=== PATIENT | female | born 1960 | race Caucasian/White ===

== ENCOUNTER → 2023-08-03 15:32 | Outpatient (REF) | payer OTHER, SELFPAY | LOC: HWRAD 15:32 | PROVIDERS: ATTENDING PHYSICIAN Nurse Practitioner Adult Health; FAMILY PHYSICIAN Internal Medicine | DX: F17.210 Nicotine dependence, cigarettes, uncomplicated (principal) | CPT/HCPCS: 71271 ==

== ENCOUNTER → 2023-09-19 15:31 | Outpatient (REF) | payer OTHER, SELFPAY | LOC: HWRAD 15:31 | PROVIDERS: ATTENDING PHYSICIAN Internal Medicine Critical Care Medicine; FAMILY PHYSICIAN Internal Medicine | DX: R91.1 Solitary pulmonary nodule (principal) | CPT/HCPCS: 71250 ==

== ENCOUNTER 2023-10-23 06:40 | Day surgery (SDC) | payer OTHER, SELFPAY ==
[2023-10-10 09:48] LABS: Hematocrit 44.5 % (37.0-47.0); Hemoglobin 14.9 g/dL (12.0-16.0); Mean Corp Hgb Conc. 33.5 g/dL (33.0-37.0); Mean Corpuscular Hgb 30.4 pg (27.0-31.0); Mean Corpuscular Volume 90.8 fL (81.0-99.0); Mean Platelet Volume 9.8 fL (7.4-10.4); Platelet Count 205 10^3/uL (130-400); White Blood Cell Count 6.2 10^3/uL (4.8-10.8)
[2023-10-10 10:00] LABS: INR 1.09; PT 13.9 Sec (11.4-14.6)
[2023-10-10 10:01] LABS: APTT 31.7 Sec (23.4-35.0)
[2023-10-10 10:27] VITALS: BMI 30.4
[2023-10-10 10:34] LABS: Blood Urea Nitrogen 15 mg/dl (7-17); Calcium 9.7 mg/dl (8.4-10.2); Carbon Dioxide 25 mmol/L (22-30); Chloride 109 mmol/L (98-107); Estimated Creatinine Clearance 79 ml/min; Glucose 68 mg/dl (70-99); Potassium 4.7 mmol/L (3.5-5.1); Sodium 143 mmol/L (135-145); eGFR > 60.00
[2023-10-23] VITALS (12 sets, daily range): BP systolic 102–144; BP diastolic 62–82; BMI 30.7
--- NOTE | 2023-10-23 14:22 | PTCARENOTE ---
Addendum..Dr Tabor aware of CXR results, patient stable for transfer to [facility] .
== END 2023-10-23 14:50 | disposition home or self-care (01) ==
LOC: SDS 06:40
PROVIDERS: ATTENDING PHYSICIAN Internal Medicine Critical Care Medicine; FAMILY PHYSICIAN Internal Medicine
DX: R91.8 Other nonspecific abnormal finding of lung field (principal)
CPT/HCPCS: 31629; 31628; 31645; 31624; 31623; 31654; 88172; 88173; 88305; 36415; 71045; 76000; 80048; 85027; 85610; 85730; 87015; 87070; 87102; 87116; 87205; 88112; 88333; 88341; 88342; 93005; 94640; C1887

== ENCOUNTER 2023-12-11 05:14 | Inpatient (IN) | payer OTHER, SELFPAY ==
[2023-12-01 09:30] LABS: % Basophils 1.5 % (0-2); % Eosinophils 2.1 % (0-6); % Immature Granulocytes 0.2 % (0-0.5); % Lymphocytes 26.2 % (20.5-51.1); Absolute Basophils 0.1 10^3/uL (0-0.2); Absolute Eosinophils 0.1 10^3/uL (0-0.7); Absolute Lymphocytes 1.7 10^3/uL (1.2-3.4); Absolute Monocytes 0.7 10^3/uL (0.1-0.6); Absolute Neutrophils 3.9 10^3/uL (1.4-6.5); Hematocrit 46.4 % (37.0-47.0); Hemoglobin 15.3 g/dL (12.0-16.0); Mean Corpuscular Hgb 30.1 pg (27.0-31.0); Mean Corpuscular Volume 91.2 fL (81.0-99.0); Mean Platelet Volume 9.2 fL (7.4-10.4); Nucleated Red Blood Cells % 0 %; Platelet Count 248 10^3/uL (130-400); Red Blood Cell Count 5.09 10^6/uL (4.20-5.40); Red Cell Dist. Width 12.9 % (11.5-14.5); White Blood Cell Count 6.5 10^3/uL (4.8-10.8)
[2023-12-01 09:33] LABS: Urine Albumin Negative (Neg - Trace); Urine Bilirubin Negative (Negative); Urine Character Clear (Clear); Urine Color Yellow; Urine Glucose Negative (Negative); Urine Ketone Negative (Negative); Urine Leukocyte Negative (Negative); Urine Nitrite Negative (Negative); Urine Occult Blood Trace (Negative); Urine Specific Gravity 1.015 (<1.030); Urine Urobilinogen Negative (Neg - 1+)
[2023-12-01 09:41] LABS: Urine Squamous Cell 16-20 /LPF (Few)
[2023-12-01 09:42] LABS: Urine Bacteria Few (Negative); Urine Red Blood Cell 0-2 /HPF (0-2); Urine White Cell 0-2 /HPF (0-5)
[2023-12-01 09:58] LABS: INR 1.08; PT 13.8 Sec (11.4-14.6)
[2023-12-01 10:27] LABS: ALT (SGPT) 11 U/L (0-35); AST (SGOT) 21 U/L (14-36); Albumin 4.7 g/dl (3.5-5.0); Alkaline Phosphatase 127 U/L (38-126); Blood Urea Nitrogen 17 mg/dl (7-17); Calcium 9.7 mg/dl (8.4-10.2); Carbon Dioxide 24 mmol/L (22-30); Chloride 106 mmol/L (98-107); Direct Bilirubin 0.3 mg/dl (0.0-0.4); Glucose 91 mg/dl (70-99); Potassium 4.4 mmol/L (3.5-5.1); Sodium 143 mmol/L (135-145); Total Bilirubin 0.9 mg/dl (0.2-1.3); Total Protein 7.1 g/dl (6.3-8.2); eGFR > 60.00
[2023-12-01 11:00] LABS: Glycohemoglobin (HgbA1c) 4.9 % (4.0-5.6)
--- NOTE | 2023-12-01 11:21 | CM ---
spoke to pt and husb in PAT's, we discussed preop teaching including driving and lifting restrictions, she is prev indep, lives with her husb in a 2 story home with a first floor set up and no steps to enter.she denies any dme's. she has the Lung
sx educ book, soap and instructions. she is agreeable to a f/u visit from the ct transitional care nurse after dc. plan isf or R-Lung surgery 12/10, cm role explained and all questions answered.
[2023-12-11] VITALS (16 sets, daily range): BP systolic 97–163; BP diastolic 58–149
--- NOTE | 2023-12-11 06:19 | W.CVOR.SURPR ---
CVOR Surgeon Immed Pre Op
-
I have examined this patient prior to performance of the scheduled procedure.
The patient's condition is unchanged from the time of the dictated/written History and
Physical and the patient is able to undergo the scheduled procedure.
Plan for RUL extended wedge/sublobar resection, given her poor baseline PFTs. Will obtain intraop frozen section and likely lymph node dissection.
[2023-12-11] MEDS: DILAUDID 0.5 MG IV ×2 (10:43→14:22)
--- NOTE | 2023-12-11 10:43 | W.PN.CT.SURG ---
CT Surgery Operative Note
-
THORACIC SURGERY OPERATIVE REPORT
Preoperative Diagnosis: Right upper lobe nodule with atypical cells
Postoperative Diagnosis: Same
Procedure(s) Performed:
1. Robotic assisted thoracic surgery [RATS] right upper lobe diagnostic and therapeutic sublobar resection
2. Lymph node dissection
3. Intercostal nerve block, interspaces 4, 5, 6, 7, 8 with bupivacaine mixture
Date of Surgery: 12/11/23
Comorbidities:
1. COPD/emphysema
2. Right upper lobe biopsy with atypical cells
3. History of tobacco abuse, former smoker with depressed pulmonary function status, DLCO 51%
4. History of GI bleed with gastric ulcer
5. Basal cell carcinoma of the skin
6. History of Crohn's colitis
7. GERD
Attending Surgeon: Lamont Kerr MD, MS
Assistants: Carlotta Aleln PA-C (present and necessary to waiter/waitress first class, exchanging robotic instruments, retraction, suction, exposure, suture management, and wound closure under my direction)
Anesthesiology: Gaston Acosta MD and Cj Villalobos CRNA
Scrub and Circulating RNs: Betzy Holly, KEIRA, Anh Pena RN
Anesthesia: Dual Lumen GETA
EBL: 100 cc
Products: None
Indication(s) for Procedures: This is a 63-year-old female with insignificant [id number] smoking history. She also has depressed pulmonary function status with DLCO 50% and reduced FEV1. She has a 15 x 9 mm nodule in her most recent CT scan that
demonstrated increase in size in comparison to previous scans. Is also PET avid with a SUV uptake of 7.2 max. She underwent a robotic endoluminal bronchoscopy that initially came back with atypical cells. Final pathology came back as no evidence
of malignancy. Due to the concerning size of the mass and its activity, she underwent multidisciplinary team discussion with the overall group consensus to pursue surgical resection. As the lesion was located in the apical posterior segment the
right upper lobe where she had the majority of her emphysematous lung disease, we all felt that she could tolerate a sublobar resection. Her [facility] cancer risk was approximately 90%.
Findings: There was evidence of bullous and emphysematous lung disease mostly confined to the apical segment and posterior segment of the right upper lobe. Her fissures were relatively well-defined. She had a paucity of lymph nodes. Multiple
fires of green/black/and purple loads were required in order to resect the apical segment. 90% of the emphysematous lung disease was resected along with the specimen. There were no obvious intrathoracic metachronous lesions that were concerning.
Due to the likelihood of this being malignancy, any obvious lymph nodes were harvested. Intraoperative frozen section returned with some atypical cells but no kraen or obvious carcinoma. Per my discussion with pathology, this was likely reactive.
Intercostal nerve block was performed with the above listed spaces for pain control. Due to the paucity of lymph nodes and the lack of cancer diagnosis, I did not perform deep hilar matilda dissection along the fissure. At the conclusion of the case
she had good inflation of her remaining lobes as well as the right upper lobe remnant. She had no significant loss of tidal volume but did have a +1 intermittent airleak.
Specimen(s):
Station 9, x 1 nodes
Station 8, x 1 nodes
Station 4, x 1 nodes
Station 7, x 2 nodes
Sublobar resection of the apical posterior segment of the right upper lobe
Description of Procedure: The patient was taken to the operating room. Induction via general anesthesia with endotracheal intubation was performed and peripheral venous access and arterial monitoring were inserted. Their identity and procedure to be
performed were verified and they were positioned with the right side up on the operating table. The patient was then prepped and draped in a sterile fashion. A preoperative time-out was performed with all members of the team present. A Veress
needle was used to insufflate the chest after isolating the lung. An 8 mm port was placed in the midaxillary line at approximately the eighth intercostal space and confirmed to be intrathoracic without significant pulmonary injury. The chest was
surveyed for any evidence of metastatic disease. Patient tolerate insufflation without complication. 2 additional 12 mm trocars were placed on either side under camera guidance and a third 8 mm trocar was placed along the back. A 12 mm operations assistant
port was placed in the 11th intercostal space above the insertion of the diaphragm. An intercostal nerve block was performed at intercostal spaces 4 through 8.
The thoracic cavity was inspected for evidence of metastatic disease. None was observed. The emphysematous lung tissue was clear identified. The nodule is not easily palpated. A large sublobar resection was performed using multiple fires of green
load staplers, black load staplers, and ultimately required an Endo JOSH purple load stapler x 2. The specimen was then placed into a small anchor bag and extracted from the chest cavity. While waiting for pathology, any obvious lymph nodes towards
the inferior pulmonary ligament, and posteriorly and upwards towards the trachea were harvested. I did develop some of the fissure between the right upper and right middle lobe/lower lobe however deep dissection of lymph nodes was not performed as
the intraoperative frozen section returned with only atypical cells likely reactive. CoSeal was used to reinforce the staple line and a raw surface area. A chest tube was inserted using one of the previous port sites and displaced towards the
apex. After confirming hemostasis, the lung was fully inflated and all ports were removed. Incisions were closed in 3 layers including the fascia, dermal, and epidermis. Additional local anesthesia was injected into all incision sites. The skin
wound was cleansed and sealed with Dermabond glue.
All instrument, sponge, and needle counts were confirmed to be correct x 2 at the end of the operation. The patient was transferred to the cardiac intensive care unit extubated in critical but stable condition.
I, Dr. Lamont Kerr, was present, scrubbed for, and performed all critical elements of this procedure.
Lamont Kerr MD, MS
Cardiothoracic Surgeon
[facility]
This operative dictation was created using the [employer] dictation system. Please excuse any grammatical, typographical, or 'sound alike' errors
[2023-12-11] MEDS: DILAUDID 0.25 MG IV (10:59)
--- NOTE | 2023-12-11 11:30 | PTCARENOTE ---
Received pt from RESERVATIONS CLERK. Pt assessed while she was lying in bed. Pt alert and oriented x4. Pt denies pain and shortness of breath. Reports nausea-see MAR. HUMPHRIES with equal strength throughout. SB with 1st degree AVB on tele with rates in the 50s. BP
stable 107/65 via cuff, correlating with left radial johnathan. Bilateral radial and DP pulses palpable. +1 edema to b/l lower extremities. POX 94% on 1L NC. Lungs diminished throughout. No cough noted. Right pleural chest tube to -20cm suction draining
serosanguineous fluid. +1 intermittent air leak. No tidaling, crepitus noted. Abdomen soft, round, nontender. Hypoactive BS. Pt due to void. Right sided 4 small incision sites with skin glue approximated and FOOT WORKER. Left radial johnathan flushed, leveled,
and zeroed. Left wrist 18g PIV intact. See MAR for medication administration. See worklist for complete nursing assessment. Plan of care reviewed and patient in agreement.
[2023-12-11] MEDS: ZOFRAN 4 MG IV ×2 (11:45→16:09)
--- NOTE | 2023-12-11 11:50 | CM ---
Chart reviewed. Patient is independent of ADLS, lives with her in a 2 STH, 1st floor set up, 0 DG, 0 DME. Plan is for the patient to return home with CT Transitional RN. CM to follow
[2023-12-11] MEDS: TORADOL 15 MG IV (12:55)
--- NOTE | 2023-12-11 14:20 | PTCARENOTE ---
Pt c/o 10/03 right sided chest/back incisional pain, see MAR. Pt voided 225mL laura urine in the bed pearson. Left radial johnathan d/c per orders. Hemostasis achieved. Pt tolerated. Family at bedside.
[2023-12-11] MEDS: TYLENOL 1000 MG PO ×2 (14:22→21:48)
[2023-12-11] MEDS: ANCEF 5 IV (16:15)
[2023-12-11] MEDS: NEURONTIN 100 MG PO ×2 (16:15→21:48)
--- NOTE | 2023-12-11 16:30 | PTCARENOTE ---
Pt reassessed. Pt states right lateral chest/back pain 08/03. C/o nausea with 125mL green emesis. Assisted to side of bed, and then to chair with 1 assist. SR with 1st degree AVB with rates in the 70s. BP stable 109/64. CT output WNL. POX 92% on RA.
Surgical sites stable. PIV intact. No other acute changes.
[2023-12-11] MEDS: REGLAN 10 MG IV (16:36)
[2023-12-11] MEDS: SENOKOT 8.6 MG PO (20:12)
[2023-12-11] MEDS: LOPRESSOR 12.5 MG PO (20:12)
--- NOTE | 2023-12-11 21:00 | PTCARENOTE ---
Assumed care of pt from dayshift RN. Walking rounds completed. Pt AAOx3. HUMPHRIES. Pt SR on the tele monitor. HR 60s. BP stable. Palpable pulses throughout. +1 LE edema present. Pt on RA. POX 94%. Breath sounds decreased throughout. Deep breathing and IS
encouraged. No cough. Right pleural CT to -20 suction. +1 air-leak present. No crepitus felt on right lateral chest/side. No tidaling present. Output WNL. Abdomen soft/nontender. Hypoactive BS. Pt experiencing intermittent nausea. Voiding in the
bathroom yellow urine. Pt 1x assist out of the chair/bed. Incision sitesx4 on right lateral chest/back approximated and FAMILY PHYSICIAN. Left wrist 18 gauge CDI and flushes. Pt resting in bed at this time. See worklist for full nursing assessment and
interventions. Call fischer within reach.
[2023-12-12] VITALS (8 sets, daily range): BP systolic 106–132; BP diastolic 57–70
--- NOTE | 2023-12-12 00:52 | PTCARENOTE ---
Previous assessment unchanged. Pt SR on the tele monitor. HR 50s. BP stable. Pt on RA. POX 92%. Right pleural CT assessment unchanged. +1 airleak remains. No tidaling/crepitus at this time. Output WNL. All surgical sites stable. Denies nausea. No
c/o pain at this time. Call fischer within reach.
[2023-12-12] MEDS: ROXICODONE 2.5 MG PO ×2 (01:08→13:52)
--- NOTE | 2023-12-12 03:33 | W.PN.CT ---
Today's Communication / Plan
-
Plan:
-No major issues overnight. Hemodynamically and neurologically intact
-Successfully extubated intraop
-Chest tube currently on -20 cmh2o wall suction with 1+ air leak. Drainage: R pleural 50/125
-Cannot appreciate a ptx, just slight SQ emphysema @ chest tube insertion site on cxr this AM on my review. F/U official cxr report
-Will discuss chest tube to suction vs water seal
-Cont. current meds (Lopressor, Symbicort, Spiriva, Protonix)
-Encourage use of IS
-OOB into chair/Ambulate
-F/U pathology
Assessment / Plan
-
Assessment:
-S/P Robotic assisted thoracic surgery [RATS] right upper lobe diagnostic and therapeutic sublobar resection/Lymph node dissection/Intercostal nerve block, interspaces 4, 5, 6, 7, 8 with bupivacaine mixture, by Dr. Kerr, 12/11/23, pod#1
-RUL mass (15 mm) with atypical cells
-NAE mass (11 mm)
-Tobacco abuse (75 pk/yr, quit ~ 2wks ago)
-COPD/Emphysema
-GERD
-Hx GI bleed/gastric ulcer S/p Colonoscopy 2017
-Crohn's colitis
-Basal cell ca face (under left eye) S/p Moh's 12/2018
-Basal cell ca nose S/P moh's 05/20, 11/16, 07/15, 01/12
Discussed patient care with: Cardiology, Nursing, Respiratory Therapy, Pharmacy and Care Team
Subjective
Procedure
S/P Robotic assisted thoracic surgery [RATS] right upper lobe diagnostic and therapeutic sublobar resection/Lymph node dissection/Intercostal nerve block, interspaces 4, 5, 6, 7, 8 with bupivacaine mixture, by Dr. Kerr, 12/11/23
-
Date of Service: December 12, 2023
Pt c/o mild incisional pain, otherwise feels well
Objective Data
-
PT 13.8 Sec (11.4-14.6) 12/01/23 09:03
INR 1.08 12/01/23 09:03
APTT Cancelled 12/01/23 08:40
Vital Signs
Vital Signs
Temp Pulse Resp BP Pulse Ox
98.1 F 60 18 112/60 92
12/11/23 23:58 12/11/23 23:58 12/11/23 23:58 12/11/23 23:58 12/11/23 23:58
CT Intake/Output/Weight
12/11/23 12/11/23 12/12/23
06:59 18:59 06:59
Intake Total 820 / 820
Output Total 425 / 445 20 / 445
Balance -10 395 / 375 -20 / 375
SaO2: 92 (RA)
Physical Exam
-
General: Awake, Oriented and AOx3
Cardiovascular: Regular rate & rhythm, No Murmurs, No Rub and No Gallop
Respiratory: Decreased Breath Sounds (@ right, otherwise clear)
Sternum: Stable
Incision: Clean, Dry, Intact and Dressing Intact
Extremities: No Edema
Data Reviewed
-
Lab Results: Results Reviewed
Medications: Active Meds Reviewed
Chest X-Ray: Report Reviewed and Image Reviewed
CT Scan: Report Reviewed and Image Reviewed
ECG: Report Reviewed and Image Reviewed
[2023-12-12] MEDS: SYMBICORT 160/4.5 MCG INHALER INH (03:49)
[2023-12-12] MEDS: FLEXERIL 5 MG PO (04:26)
[2023-12-12 04:31] LABS: Hematocrit 39.3 % (37.0-47.0); Hemoglobin 13.4 g/dL (12.0-16.0); Mean Corp Hgb Conc. 34.1 g/dL (33.0-37.0); Mean Corpuscular Hgb 30.1 pg (27.0-31.0); Mean Corpuscular Volume 88.3 fL (81.0-99.0); Mean Platelet Volume 9.1 fL (7.4-10.4); Platelet Count 206 10^3/uL (130-400); Red Blood Cell Count 4.45 10^6/uL (4.20-5.40); Red Cell Dist. Width 12.8 % (11.5-14.5); White Blood Cell Count 16.7 10^3/uL (4.8-10.8)
--- NOTE | 2023-12-12 04:41 | PTCARENOTE ---
No acute changes in assessment. Remains SR on the tele monitor. HR 60s. BP stable. Pt on RA. POX 91%. Right pleural CT assessment unchanged. +1 air-leak remains. All surgical sites stable. Pt c/o right side feeling sore - see MAY. Labs drawn and
sent. Pt repositioned in bed. Call fischer within reach.
[2023-12-12 04:46] LABS: Blood Urea Nitrogen 28 mg/dl (7-17); Calcium 9.3 mg/dl (8.4-10.2); Carbon Dioxide 21 mmol/L (22-30); Chloride 107 mmol/L (98-107); Glucose 132 mg/dl (70-99); Potassium 4.5 mmol/L (3.5-5.1); Sodium 140 mmol/L (135-145); eGFR > 60.00
[2023-12-12] MEDS: TYLENOL 1000 MG PO ×3 (06:02→21:02)
[2023-12-12] MEDS: SYMBICORT 160/4.5 MCG INHALER 2 PUFF INH ×2 (07:39→19:35)
[2023-12-12] MEDS: SPIRIVA RESPIMAT 2.5 MCG 2 PUFF INH (07:39)
[2023-12-12] MEDS: TORADOL 15 MG IV ×2 (09:27→21:40)
[2023-12-12] MEDS: KCL 20 MEQ PO (09:28)
[2023-12-12] MEDS: LOPRESSOR 12.5 MG PO ×2 (09:28→19:46)
[2023-12-12] MEDS: PROTONIX 40 MG PO (09:28)
[2023-12-12] MEDS: SENOKOT 8.6 MG PO ×2 (09:29→19:46)
[2023-12-12] MEDS: ANCEF 5 IV ×2 (09:29)
[2023-12-12] MEDS: MIRALAX 17 GRAMS PO (09:29)
[2023-12-12] MEDS: NEURONTIN 100 MG PO ×3 (09:29→21:02)
[2023-12-12] MEDS: LIDOCAINE 4% PATCH 1 PATCH TOPICAL (09:29)
[2023-12-12] MEDS: LASIX 20 MG IV (09:29)
--- NOTE | 2023-12-12 09:48 | PTCARENOTE ---
assumed care of pt from previous shift RN, sinus rhythm on tele, VSS. Right lateral surgical sites intact, RP CT to H20 seal. PIV flushes easily. Plan of care reviewed w the pt and questions encouraged.
--- NOTE | 2023-12-12 12:48 | PTCARENOTE ---
cxr completed, CT placed back to suction by CT FLORENCIA.
--- NOTE | 2023-12-12 16:38 | PTCARENOTE ---
sinus rhythm maintained on tele, VSS, pain is well controlled. CT remains to suction w minimal output.
[2023-12-13] VITALS (8 sets, daily range): BP systolic 104–158; BP diastolic 50–94
--- NOTE | 2023-12-13 03:08 | DOWNTIME ---
There was a [employer] Client Health Policy Manager Downtime on 12/13/2023 from 0100 to 12/13/2023 at 0300. Downtime documentation of patient's care, including medication administrations, has been reconciled in the electronic record per guidelines. Refer to the
patient's paper chart under the miscellaneous tab to see printed paper medication records and downtime forms.
[2023-12-13] MEDS: ROXICODONE 2.5 MG PO ×2 (04:11→17:45)
[2023-12-13] MEDS: TYLENOL 1000 MG PO ×3 (05:43→22:07)
--- NOTE | 2023-12-13 05:52 | PTCARENOTE ---
Pt. slept well overnight, right chest tube site discomfort well relieved with Toradol/Tylenol. CT to -20 cm water suction draining SS fluid. Total output for this shift 40 ml.
--- NOTE | 2023-12-13 07:34 | W.PN.CT ---
Today's Communication / Plan
-
Plan:
-No major issues overnight. Hemodynamically and neurologically intact
-Chest tube currently on -20 cmh2o wall suction with 1+ air leak. Drainage: R pleural 80/80
-Cannot appreciate a ptx on cxr this AM on my review. F/U official cxr report
-Will likely transition chest tube to water seal today with f/u cxr
-Cont. current meds (Lopressor, Symbicort, Spiriva, Protonix)
-Encourage use of IS
-OOB into chair/Ambulate
-F/U pathology
Assessment / Plan
-
Assessment:
-S/P Robotic assisted thoracic surgery [RATS] right upper lobe diagnostic and therapeutic sublobar resection/Lymph node dissection/Intercostal nerve block, interspaces 4, 5, 6, 7, 8 with bupivacaine mixture, by Dr. Kerr, 12/11/23, pod#1
-RUL mass (15 mm) with atypical cells
-NAE mass (11 mm)
-Tobacco abuse (75 pk/yr, quit ~ 2wks ago)
-COPD/Emphysema
-GERD
-Hx GI bleed/gastric ulcer S/p Colonoscopy 2017
-Crohn's colitis
-Basal cell ca face (under left eye) S/p Moh's 12/2018
-Basal cell ca nose S/P moh's 05/20, 11/16, 07/15, 01/12
Discussed patient care with: Cardiology, Nursing, Respiratory Therapy, Pharmacy and Care Team
Subjective
Procedure
S/P Robotic assisted thoracic surgery [RATS] right upper lobe diagnostic and therapeutic sublobar resection/Lymph node dissection/Intercostal nerve block, interspaces 4, 5, 6, 7, 8 with bupivacaine mixture, by Dr. Kerr, 12/11/23
-
Date of Service: December 13, 2023
Pt c/o chest tube insertion site pain last night, better this morning
Objective Data
-
Lab Results
12/12/23 04:20
12/12/23 04:20
PT 13.8 Sec (11.4-14.6) 12/01/23 09:03
INR 1.08 12/01/23 09:03
APTT Cancelled 12/01/23 08:40
Vital Signs
Vital Signs
Temp Pulse Resp BP Pulse Ox
97.9 F 77 20 117/65 90
12/13/23 07:01 12/13/23 04:03 12/13/23 07:01 12/13/23 04:03 12/13/23 07:01
CT Intake/Output/Weight
12/12/23 12/13/23 12/13/23
18:59 06:59 18:59
Intake Total 100 / 340 240 / 340
Output Total 40 / 80 40 / 80
Balance 60 / 260 200 / 260
SaO2: 90 (RA)
Physical Exam
-
General: Awake, Oriented and AOx3
Cardiovascular: Regular rate & rhythm
Respiratory: Decreased Breath Sounds
Sternum: Stable
Incision: Clean, Dry, Intact and Dressing Intact
Extremities: No Edema
Data Reviewed
-
Lab Results: Results Reviewed
Medications: Active Meds Reviewed
Chest X-Ray: Report Reviewed and Image Reviewed
ECG: Report Reviewed and Image Reviewed
--- NOTE | 2023-12-13 08:00 | PTCARENOTE ---
Assumed care of pt from prev nsg shift; pt AAOx3 w/no c/o SOB, pt c/o 'mild' 2-3/10 R lateral chest pain at her chest tube insertion site. Pt declined pain meds at this time. Pt w/chest tube to drainage as ordered, w/+1 known air leak, no signs or
symptoms of crepitus. Chest dressing w/some serosanguineous drainage unchanged from prev nurses assessment. Pt's VS stable w/HR in the 60's & BP this AM 121/62. Pt assisted OOB to BR then to CH. Pt's gait slow, but steady. Pt w/call fischer within
reach & plan of care ongoing.
[2023-12-13] MEDS: SPIRIVA RESPIMAT 2.5 MCG 2 PUFF INH (08:15)
[2023-12-13] MEDS: SYMBICORT 160/4.5 MCG INHALER 2 PUFF INH ×2 (08:15→19:33)
[2023-12-13] MEDS: LIDOCAINE 4% PATCH 1 PATCH TOPICAL (08:44)
[2023-12-13] MEDS: LOPRESSOR 12.5 MG PO ×2 (08:45→19:47)
[2023-12-13] MEDS: MIRALAX 17 GRAMS PO (08:45)
[2023-12-13] MEDS: TORADOL 15 MG IV (08:46)
[2023-12-13] MEDS: NEURONTIN 100 MG PO ×3 (08:46→22:07)
[2023-12-13] MEDS: PROTONIX 40 MG PO (08:46)
[2023-12-13] MEDS: SENOKOT 8.6 MG PO ×2 (08:46→19:47)
[2023-12-13] MEDS: FLUSH (NSS) 2 FLUSH IV ×2 (08:47→16:05)
--- NOTE | 2023-12-13 09:27 | CM ---
Reviewed chart. Mrs. Portillo was transferred to IVU. Met with Mrs. Portillo to review discharge plans. She states she is feeling better. She states prior to admission she resides with her spouse in a two story home with four steps to enter.
She states she has a first floor set-up. Her primary suite is on the first floor. She states prior to admission she was independent with ambulation and adls. She states she does not have any DME in the home. She states her spouse is retired and
will be available to assist in her care if needed. We reviewed a home visit by the Cardiothoracic Transitional Care Nurse. She is agreeable to a home visit. Medical work-up in progress. The discharge plan is to return home with her spouse and a
home visit by the Cardiothoracic Transitional Care Nurse when medically stable.
[2023-12-13] MEDS: DILAUDID 0.25 MG IV ×2 (16:05→20:43)
--- NOTE | 2023-12-13 16:28 | PTCARENOTE ---
Pt's spouse out to the nurses station to report pt was having 'severe chest pain'; CT surgery PA in to see pt immediately. Pt having 10/10 R upper chest & R upper back pain. Pt's chest tube checked for kinks in the tubing, dressing checked, & pt
assisted back to bed. New crepitus noted above chest tube insertion site. Stat EKG done-pt NSR w/no changes. IV Dilaudid administered as ordered. Stat CXR done. Pt's pain level improved at a 3/10 at this time. Pt w/call fischer within reach.
[2023-12-13] MEDS: FLEXERIL 5 MG PO (23:33)
[2023-12-13 23:51] LABS: Hematocrit 40.6 % (37.0-47.0); Hemoglobin 13.7 g/dL (12.0-16.0); Platelet Count 212 10^3/uL (130-400)
[2023-12-14] VITALS (9 sets, daily range): BP systolic 96–126; BP diastolic 52–67
--- NOTE | 2023-12-14 01:36 | PTCARENOTE ---
Patient requires standby assist when ambulating to bathroom. Denies any dizziness. Pt does c/o exertional pain when returning from bathroom. Described pain as 'sharp' and 'burning'. PRN Dilaudid administered--see MAY for details. Pt w/ good relief
post pain assessment. Pulse ox sating 89-90% RA. Applied 2L for comfort, pt currently sating 96%. Kevin Parra CVPA made aware. Tele remains NSR-Sinus Jose, HR in the 50-70's at rest. Chest tube on -20cm suction per order, and draining
serosanguineous fluid. Grade level 1 air leak remains, PA aware. Pt oriented x4, and can make needs known. Call fischer in reach.
[2023-12-14] MEDS: ROXICODONE 2.5 MG PO ×3 (02:47→12:23)
--- NOTE | 2023-12-14 05:21 | PTCARENOTE ---
Right lateral chest tube w/ 60cc output overnight. Suction remains at -20cm to wall suction per order. POC ongoing. fischer within reach.
[2023-12-14] MEDS: MILK OF MAGNESIA 30 ML PO (05:30)
[2023-12-14] MEDS: TYLENOL 1000 MG PO ×3 (05:30→22:31)
[2023-12-14 05:42] LABS: Hematocrit 40.3 % (37.0-47.0); Hemoglobin 13.5 g/dL (12.0-16.0); Mean Corp Hgb Conc. 33.5 g/dL (33.0-37.0); Mean Corpuscular Volume 92.6 fL (81.0-99.0); Mean Platelet Volume 9.1 fL (7.4-10.4); Platelet Count 170 10^3/uL (130-400); Red Blood Cell Count 4.35 10^6/uL (4.20-5.40); White Blood Cell Count 8.8 10^3/uL (4.8-10.8)
[2023-12-14 06:09] LABS: Blood Urea Nitrogen 29 mg/dl (7-17); Carbon Dioxide 23 mmol/L (22-30); Chloride 107 mmol/L (98-107); Glucose 88 mg/dl (70-99); Potassium 4.6 mmol/L (3.5-5.1); Sodium 140 mmol/L (135-145); eGFR > 60.00
--- NOTE | 2023-12-14 07:49 | W.PN.CT ---
Today's Communication / Plan
-
-pod #3
-hemodynamically stable overnight, got Dilaudid for pain
-R pleural CT with +1 intermittent air leak, on -20 sxn. Tiny R apical ptx- follow
-encourage IS, OOB
Assessment / Plan
-
Assessment:
-S/P Robotic assisted thoracic surgery [RATS] right upper lobe diagnostic and therapeutic sublobar resection/Lymph node dissection/Intercostal nerve block, interspaces 4, 5, 6, 7, 8 with bupivacaine mixture, by Dr. Kerr, 12/11/23, pod#3
-RUL mass (15 mm) with atypical cells
-NAE mass (11 mm)
-Tobacco abuse (75 pk/yr, quit ~ 2wks ago)
-COPD/Emphysema
-GERD
-Hx GI bleed/gastric ulcer S/p Colonoscopy 2017
-Crohn's colitis
-Basal cell ca face (under left eye) S/p Moh's 12/2018
-Basal cell ca nose S/P moh's 05/20, 11/16, 07/15, 01/12
Discussed patient care with: Nursing and Care Team
Subjective
Procedure
S/P Robotic assisted thoracic surgery [RATS] right upper lobe diagnostic and therapeutic sublobar resection/Lymph node dissection/Intercostal nerve block, interspaces 4, 5, 6, 7, 8 with bupivacaine mixture, by Dr. Kerr, 12/11/23
-
Date of Service: December 14, 2023
Objective Data
-
Lab Results
12/14/23 05:29
12/14/23 05:29
PT 13.8 Sec (11.4-14.6) 12/01/23 09:03
INR 1.08 12/01/23 09:03
APTT Cancelled 12/01/23 08:40
Vital Signs
Vital Signs
Temp Pulse Resp BP Pulse Ox
97.8 F 58 20 126/67 96
12/14/23 07:01 12/14/23 05:00 12/14/23 07:01 12/14/23 02:45 12/14/23 07:01
CT Intake/Output/Weight
12/13/23 12/14/23 12/14/23
18:59 06:59 18:59
Intake Total 720 / 1440 720 / 1440
Output Total 150 / 150
Balance 720 / 1290 570 / 1290
SaO2: 96
[2023-12-14] MEDS: SYMBICORT 160/4.5 MCG INHALER 2 PUFF INH ×2 (08:23→20:02)
[2023-12-14] MEDS: SPIRIVA RESPIMAT 2.5 MCG 2 PUFF INH (08:23)
[2023-12-14] MEDS: LIDOCAINE 4% PATCH 1 PATCH TOPICAL (09:17)
[2023-12-14] MEDS: NEURONTIN 100 MG PO ×3 (09:18→22:31)
[2023-12-14] MEDS: LOPRESSOR 12.5 MG PO ×2 (09:18→20:11)
[2023-12-14] MEDS: PROTONIX 40 MG PO (09:18)
[2023-12-14] MEDS: SENOKOT 8.6 MG PO ×2 (09:19→20:12)
[2023-12-14] MEDS: MIRALAX 17 GRAMS PO (09:19)
[2023-12-14] MEDS: FLEXERIL 5 MG PO ×2 (09:22→16:00)
[2023-12-14] MEDS: DILAUDID 0.25 MG IV (18:41)
[2023-12-14] MEDS: TORADOL 15 MG IV (19:25)
--- NOTE | 2023-12-14 19:25 | PTCARENOTE ---
Pt OOB to chair for most of the day. Pt reports burning stabbing pain in right side which has responded to combinations of flexeril, tylenol, roxicodone, see MAR. Pt c/o 11/03 pain in her right scapula , upper back and chest @18:40, given dilaudid
with initial improvement. CT on water seal today, 40 mls serosanguineous fluid drained.
--- NOTE | 2023-12-14 23:23 | PTCARENOTE ---
received patient at the change of shift. patient sitting in the chair complaining of pain Rt upper back. intermittent, stabbing pain. Dilaudid given on previous shift with some relief per patient. 10/10 pain per patient PRN Toradol given. assisted
patient back to bed and made comfortable. currently-patient states having no pain. resting in bed comfortably and able to sleep. educated patient to inform RN with any other changes.
SR on tele 60s-70s. bp stable. R chest tube to water seal. +1 intermittent air leak noted-with inhalation and talking. no crepitus noted. no new drainage on dressing. shallow breathing. fine crackles right lung base. IS and deep breathing
encouraged. 94% on 2L.
educated patient to call for assistance OOB. call fischer within reach.
[2023-12-15] VITALS (8 sets, daily range): BP systolic 85–130; BP diastolic 58–83
[2023-12-15] MEDS: ROXICODONE 2.5 MG PO ×3 (04:40→17:12)
[2023-12-15] MEDS: TYLENOL 1000 MG PO ×3 (06:31→22:43)
[2023-12-15] MEDS: DILAUDID 0.25 MG IV ×3 (06:46→18:51)
--- NOTE | 2023-12-15 06:48 | W.PN.CT ---
Addendum entered and electronically signed by Morris Sharma MD 12/15/23 09:00:
I saw and examined the patient.
The PA's note was reviewed and I agree with the note.
Comment:
Postop day #4 status post right upper lobe wedge resection and lymph node sampling
Overall, patient is doing quite well, continued air leak on waterseal overnight with increased subcutaneous emphysema on chest x-ray this morning. Chest tube placed back to suction at -20 at 6:45 AM. Dressing reinforced.
Maintain chest tube today, follow-up daily chest x-rays
Will progress towards discharge once airleak resolves
Out of bed, ambulate, I-S
Original Note:
Today's Communication / Plan
-
-pod #4
-R pleural CT with +1 intermittent air leak, on water seal overnight. Increased subcut emphysema on CXR - put back on -20 sxn at 6:45 am
-encourage IS, OOB
Assessment / Plan
-
Assessment:
-S/P Robotic assisted thoracic surgery [RATS] right upper lobe diagnostic and therapeutic sublobar resection/Lymph node dissection/Intercostal nerve block, interspaces 4, 5, 6, 7, 8 with bupivacaine mixture, by Dr. Kerr, 12/11/23, pod#4
-RUL mass (15 mm) with atypical cells
-NAE mass (11 mm)
-Tobacco abuse (75 pk/yr, quit ~ 2wks ago)
-COPD/Emphysema
-GERD
-Hx GI bleed/gastric ulcer S/p Colonoscopy 2017
-Crohn's colitis
-Basal cell ca face (under left eye) S/p Moh's 12/2018
-Basal cell ca nose S/P moh's 05/20, 11/16, 07/15, 01/12
Discussed patient care with: Nursing and Care Team
Subjective
Procedure
S/P Robotic assisted thoracic surgery [RATS] right upper lobe diagnostic and therapeutic sublobar resection/Lymph node dissection/Intercostal nerve block, interspaces 4, 5, 6, 7, 8 with bupivacaine mixture, by Dr. Kerr, 12/11/23
-
Date of Service: December 15, 2023
Objective Data
-
Lab Results
12/14/23 05:29
12/14/23 05:29
PT 13.8 Sec (11.4-14.6) 12/01/23 09:03
INR 1.08 12/01/23 09:03
APTT Cancelled 12/01/23 08:40
Vital Signs
Vital Signs
Temp Pulse Resp BP Pulse Ox
97.8 F 73 16 109/52 94
12/14/23 22:32 12/14/23 22:31 12/14/23 22:32 12/14/23 22:31 12/14/23 22:32
CT Intake/Output/Weight
12/14/23 12/14/23 12/15/23
06:59 18:59 06:59
Intake Total 720 / 1440 240 / 640 400 / 640
Output Total 150 / 150 40 / 40
Balance 570 / 1290 200 / 600 400 / 600
SaO2: 94
Physical Exam
-
General: Awake and AOx3
Cardiovascular: Regular rate & rhythm, No Murmurs and No Rub
Respiratory: Decreased Breath Sounds (few crackles on R.)
Incision: Clean, Dry and Intact
Extremities: No Edema
Data Reviewed
-
Lab Results: Results Reviewed
Medications: Active Meds Reviewed
Chest X-Ray: Report Reviewed and Image Reviewed
ECG: Report Reviewed and Image Reviewed
[2023-12-15] MEDS: SYMBICORT 160/4.5 MCG INHALER 2 PUFF INH ×2 (07:49→20:49)
[2023-12-15] MEDS: SPIRIVA RESPIMAT 2.5 MCG 2 PUFF INH (07:49)
[2023-12-15] MEDS: MILK OF MAGNESIA 30 ML PO (08:23)
[2023-12-15] MEDS: PROTONIX 40 MG PO (08:23)
[2023-12-15] MEDS: FLEXERIL 5 MG PO ×2 (08:23→15:49)
[2023-12-15] MEDS: MIRALAX 17 GRAMS PO (08:23)
[2023-12-15] MEDS: LIDOCAINE 4% PATCH 1 PATCH TOPICAL (08:23)
[2023-12-15] MEDS: NEURONTIN 100 MG PO ×3 (08:24→22:43)
[2023-12-15] MEDS: SENOKOT 8.6 MG PO ×2 (08:24→21:30)
[2023-12-15] MEDS: LOPRESSOR 12.5 MG PO ×2 (08:24→21:30)
--- NOTE | 2023-12-15 11:23 | CM ---
dc plan remains home with husb when medically stable and f/u visit with the ct transitional care nurse.
[2023-12-15] MEDS: TORADOL 15 MG IV (18:01)
--- NOTE | 2023-12-15 19:39 | PTCARENOTE ---
Pt continues with discomfort related to chest tube, most relief after dilaudid. CT drained 55MLS today.
[2023-12-15 20:26] LABS: COVID-19 Antigen Negative (Negative)
--- NOTE | 2023-12-15 22:30 | PTCARENOTE ---
pt pleasant and cooperative. states she is feeling much better at this time. states she is good with scheduled meds at this time. pt encouraged to call if extra pain meds needed.right chest tube intact with small leak noted. subcutaneous emphysema
noted right back.cardiac pa aware. repeat cxr done at bedside is improved. will observe frequently.
[2023-12-16] VITALS (7 sets, daily range): BP systolic 95–122; BP diastolic 54–77
--- NOTE | 2023-12-16 04:32 | W.PN.CT ---
Addendum entered and electronically signed by Morris Sharma MD 12/16/23 08:31:
I saw and examined the patient.
The PA's note was reviewed and I agree with the note.
Comment:
Postop day #5 status post wedge resection of right upper lobe, lymph node sampling
No major overnight events, however patient has continued airleak. Chest tubes in place back to suction. Patient with increased subcutaneous emphysema on waterseal
AM chest x-ray reviewed reviewed, increase subcutaneous emphysema, but no pneumothorax. Chest tube is in ideal position. There is no effusion.
Maintain chest tube to suction today
Daily chest x-rays
Out of bed, I-S
Original Note:
Today's Communication / Plan
-
-pod #5
-R CT on -20 sxn overnight, continuous air leak noted. (had increased ptx and subcut. emphysema on water seal ealier)
-follow daily CXR
-encourage IS
Assessment / Plan
-
Assessment:
-S/P Robotic assisted thoracic surgery [RATS] right upper lobe diagnostic and therapeutic sublobar resection/Lymph node dissection/Intercostal nerve block, interspaces 4, 5, 6, 7, 8 with bupivacaine mixture, by Dr. Kerr, 12/11/23, pod#5
-RUL mass (15 mm) with atypical cells
-NAE mass (11 mm)
-Tobacco abuse (75 pk/yr, quit ~ 2wks ago)
-COPD/Emphysema
-GERD
-Hx GI bleed/gastric ulcer S/p Colonoscopy 2017
-Crohn's colitis
-Basal cell ca face (under left eye) S/p Moh's 12/2018
-Basal cell ca nose S/P moh's 05/20, 11/16, 07/15, 01/12
Discussed patient care with: Nursing and Care Team
Subjective
Procedure
S/P Robotic assisted thoracic surgery [RATS] right upper lobe diagnostic and therapeutic sublobar resection/Lymph node dissection/Intercostal nerve block, interspaces 4, 5, 6, 7, 8 with bupivacaine mixture, by Dr. Kerr, 12/11/23
-
Date of Service: December 16, 2023
Objective Data
-
Lab Results
12/14/23 05:29
12/14/23 05:29
PT 13.8 Sec (11.4-14.6) 12/01/23 09:03
INR 1.08 12/01/23 09:03
APTT Cancelled 12/01/23 08:40
Vital Signs
Vital Signs
Temp Pulse Resp BP Pulse Ox
98.0 F 67 20 104/58 94
12/15/23 23:19 12/15/23 23:00 12/15/23 23:19 12/15/23 22:47 12/16/23 00:48
CT Intake/Output/Weight
12/15/23 12/15/23 12/16/23
06:59 18:59 06:59
Intake Total 400 / 640 240 / 240
Output Total 50 / 90 55 / 55
Balance 350 / 550 185 / 185
SaO2: 94
Physical Exam
-
General: Awake and AOx3
Cardiovascular: Regular rate & rhythm, No Murmurs and No Rub
Respiratory: Decreased Breath Sounds (few crackles on R.)
Incision: Clean, Dry and Intact
Extremities: No Edema
Data Reviewed
-
Lab Results: Results Reviewed
Medications: Active Meds Reviewed
Chest X-Ray: Report Reviewed and Image Reviewed
[2023-12-16] MEDS: TYLENOL 1000 MG PO ×3 (05:42→22:37)
--- NOTE | 2023-12-16 06:14 | PTCARENOTE ---
pt arouses easily from sleep. states she slept very well.scheduled tylenol dose given as ordered. pt denies need for any extra pain med at this time. portable cxr done. o2 sat94% on 2lnc. 65 ml from chest tube this shift. air leak remains
[2023-12-16] MEDS: SPIRIVA RESPIMAT 2.5 MCG 2 PUFF INH (08:00)
--- NOTE | 2023-12-16 08:00 | PTCARENOTE ---
Pt's right lateral chest tube decreased to 10 cm of suction. Level 1 air leak is unchanged. Crepitus noted above right CT site. Serosanguenous drainage noted in tube and drainage container. Will monitor.
[2023-12-16] MEDS: SYMBICORT 160/4.5 MCG INHALER 2 PUFF INH ×2 (08:01→19:23)
[2023-12-16] MEDS: MIRALAX 17 GRAMS PO (08:32)
[2023-12-16] MEDS: LIDOCAINE 4% PATCH 1 PATCH TOPICAL (08:32)
[2023-12-16] MEDS: PROTONIX 40 MG PO (08:33)
[2023-12-16] MEDS: SENOKOT 8.6 MG PO ×2 (08:33→20:22)
[2023-12-16] MEDS: NEURONTIN 100 MG PO ×3 (08:33→22:37)
[2023-12-16] MEDS: LOPRESSOR 12.5 MG PO ×2 (08:33→20:22)
[2023-12-16] MEDS: DILAUDID 0.25 MG IV (10:00)
[2023-12-16] MEDS: FLEXERIL 5 MG PO (16:40)
[2023-12-16] MEDS: DULCOLAX 10 MG RECTAL (16:41)
--- NOTE | 2023-12-16 18:04 | PTCARENOTE ---
Pt c/o 8 out of 10 right upper chest pain. Dilauded given, PA notified. Stat CXR obtained. No new orders. Pt medicated for increased comfort. Will monitor.
[2023-12-16] MEDS: ROXICODONE 2.5 MG PO (20:22)
--- NOTE | 2023-12-16 22:12 | PTCARENOTE ---
received the patient at the change of shift. resting in the chair with family. patient complain of 4/10 Rt upper back pain. requesting something for pain. PRN oxy given, see mar. improved pain. assisted back to bed and made comfortable. patient
states overall feeling better. SR on tele 70s-80s. bp stable. ambulating without difficulty. Rt CT site intact. -10cm suction. intermittent small air leak noted-unchanged. crepitus noted above/medial of CT site. 95% on 2L. IS encouraged. educated
patient to inform RN with any changes. call fischer within reach. calls appropriately.
large formed BM x1 this evening per patient.
[2023-12-17] VITALS (8 sets, daily range): BP systolic 91–108; BP diastolic 39–61
[2023-12-17 05:39] LABS: COVID-19 Antigen Negative (Negative)
--- NOTE | 2023-12-17 05:47 | W.PN.CT ---
Addendum entered and electronically signed by Morris Sharma MD 12/17/23 09:58:
I saw and examined the patient.
The PA's note was reviewed and I agree with the note.
Comment:
Postop day #6 following right robotic VATS and sublobar resection with lymph node dissection
Patient with continued air leak at -20 of suction. Chest x-ray this morning with no significant pneumothorax, chest tube in good position, no significant effusion, subcutaneous emphysema largely unchanged
Maintain chest tube
Out of bed, I-S
Await resolution of air leak
Original Note:
Today's Communication / Plan
-
-pod #6
-R CT back to -20 sxn 2/2 subq emphysema on WS, remains with air leak
-PCXR today without PTX, subq air appears stable compared to yesterday
-continue Spiriva, Symbicort
-pain mgt APAP, gabapentin, lido patch
-follow daily CXR
-encourage IS
Assessment / Plan
-
Assessment:
-S/P Robotic assisted thoracic surgery [RATS] right upper lobe diagnostic and therapeutic sublobar resection/Lymph node dissection/Intercostal nerve block, interspaces 4, 5, 6, 7, 8 with bupivacaine mixture, by Dr. Kerr, 12/11/23, pod#6
-RUL mass (15 mm) with atypical cells
-NAE mass (11 mm)
-Tobacco abuse (75 pk/yr, quit ~ 2wks ago)
-COPD/Emphysema
-GERD
-Hx GI bleed/gastric ulcer S/p Colonoscopy 2017
-Crohn's colitis
-Basal cell ca face (under left eye) S/p Moh's 12/2018
-Basal cell ca nose S/P moh's 05/20, 11/16, 07/15, 01/12
Subjective
Procedure
S/P Robotic assisted thoracic surgery [RATS] right upper lobe diagnostic and therapeutic sublobar resection/Lymph node dissection/Intercostal nerve block, interspaces 4, 5, 6, 7, 8 with bupivacaine mixture, by Dr. Kerr, 12/11/23
-
Date of Service: December 17, 2023
Objective Data
-
Lab Results
12/14/23 05:29
12/14/23 05:29
PT 13.8 Sec (11.4-14.6) 12/01/23 09:03
INR 1.08 12/01/23 09:03
APTT Cancelled 12/01/23 08:40
Vital Signs
Vital Signs
Temp Pulse Resp BP Pulse Ox
97.9 F 74 16 108/52 95
12/17/23 04:21 12/17/23 04:18 12/17/23 04:21 12/17/23 04:18 12/17/23 04:21
CT Intake/Output/Weight
12/16/23 12/16/23 12/17/23
06:59 18:59 06:59
Intake Total 400 / 400
Output Total 65 / 120 60 / 60
Balance -65 / 120 340 / 340
SaO2: 95
Physical Exam
-
General: Awake, Oriented and AOx3
Cardiovascular: Regular rate & rhythm, No Murmurs and No Rub
Respiratory: Clear and Decreased Breath Sounds (R>L)
Extremities: No Edema and No Erythema
Data Reviewed
-
Lab Results: Results Reviewed
Medications: Active Meds Reviewed
Chest X-Ray: Report Reviewed
ECG: Report Reviewed
[2023-12-17] MEDS: TYLENOL 1000 MG PO ×3 (05:55→23:28)
[2023-12-17] MEDS: LIDOCAINE 4% PATCH 1 PATCH TOPICAL (07:51)
[2023-12-17] MEDS: MIRALAX 17 GRAMS PO (07:52)
[2023-12-17] MEDS: PROTONIX 40 MG PO (07:52)
[2023-12-17] MEDS: NEURONTIN 100 MG PO ×3 (07:52→23:28)
[2023-12-17] MEDS: SENOKOT 8.6 MG PO ×2 (07:53→20:51)
[2023-12-17] MEDS: LOPRESSOR 12.5 MG PO ×2 (07:59→20:51)
[2023-12-17] MEDS: SPIRIVA RESPIMAT 2.5 MCG 2 PUFF INH (08:35)
[2023-12-17] MEDS: SYMBICORT 160/4.5 MCG INHALER 2 PUFF INH ×2 (08:35→19:31)
[2023-12-17] MEDS: DILAUDID 0.25 MG IV (14:24)
--- NOTE | 2023-12-17 14:28 | PTCARENOTE ---
Dilaudid 0.25 mg IV given for 8/10 pain in right shoulder and arm as per MAY.
[2023-12-17] MEDS: FLEXERIL 5 MG PO (16:20)
[2023-12-17] MEDS: TORADOL 15 MG IV (16:41)
[2023-12-17] MEDS: ROXICODONE 10 MG PO (16:51)
--- NOTE | 2023-12-17 18:00 | PTCARENOTE ---
Pt continued to c/o right mid to upper back pain that radiated to her right upper, ACW. CV PA notified. Pt medicated and repositioned for comfort. Will monitor.
--- NOTE | 2023-12-17 21:12 | PTCARENOTE ---
received patient at change of shift with Rt CT at -10 cm suction. after reviewing notes/report, confirmed suction with Miguel [employer]. CT changed to -20 cm. order updated. +1 air leak present intermittently with coughing/talking. crepitus to the
left/medial of CT dressing. patient denies any pain at this time. denies shortness of breath. educated patient to inform RN with any changes.
--- NOTE | 2023-12-18 05:19 | W.PN.CT ---
Today's Communication / Plan
-
-pod #7
-R CT back to -20 sxn 2/2 subq emphysema on WS 12/15, remains with +1 air leak
-continue Spiriva, Symbicort
-pain mgt APAP, gabapentin, lido patch
-follow daily CXR
-encourage IS
Assessment / Plan
-
Assessment:
-S/P Robotic assisted thoracic surgery [RATS] right upper lobe diagnostic and therapeutic sublobar resection/Lymph node dissection/Intercostal nerve block, interspaces 4, 5, 6, 7, 8 with bupivacaine mixture, by Dr. Kerr, 12/11/23, pod#7
-RUL mass (15 mm) with atypical cells
-NAE mass (11 mm)
-Tobacco abuse (75 pk/yr, quit ~ 2wks ago)
-COPD/Emphysema
-GERD
-Hx GI bleed/gastric ulcer S/p Colonoscopy 2017
-Crohn's colitis
-Basal cell ca face (under left eye) S/p Moh's 12/2018
-Basal cell ca nose S/P moh's 05/20, 11/16, 07/15, 01/12
Subjective
Procedure
S/P Robotic assisted thoracic surgery [RATS] right upper lobe diagnostic and therapeutic sublobar resection/Lymph node dissection/Intercostal nerve block, interspaces 4, 5, 6, 7, 8 with bupivacaine mixture, by Dr. Kerr, 12/11/23
-
Date of Service: December 18, 2023
Objective Data
-
Lab Results
12/14/23 05:29
12/14/23 05:29
PT 13.8 Sec (11.4-14.6) 12/01/23 09:03
INR 1.08 12/01/23 09:03
APTT Cancelled 12/01/23 08:40
Vital Signs
Vital Signs
Temp Pulse Resp BP Pulse Ox
98.0 F 74 16 102/40 95
12/17/23 23:29 12/17/23 19:35 12/17/23 23:29 12/17/23 18:58 12/17/23 23:29
CT Intake/Output/Weight
12/17/23 12/17/23 12/18/23
06:59 18:59 06:59
Intake Total 400 / 400 860 / 860
Output Total 85 / 85 70 / 70
Balance 315 / 315 790 / 790
SaO2: 95
Physical Exam
-
General: Awake, Oriented and AOx3
Cardiovascular: Regular rate & rhythm
Respiratory: Clear and Other (crepitus palpated peña-CT dressing)
Extremities: No Edema
Data Reviewed
-
Lab Results: Results Reviewed
Medications: Active Meds Reviewed
Chest X-Ray: Report Reviewed
ECG: Report Reviewed
[2023-12-18 05:26] VITALS: BP 93/45
[2023-12-18] MEDS: TYLENOL 1000 MG PO ×3 (06:19→22:11)
[2023-12-18] MEDS: SYMBICORT 160/4.5 MCG INHALER 2 PUFF INH ×2 (07:13→19:40)
[2023-12-18] MEDS: SPIRIVA RESPIMAT 2.5 MCG 2 PUFF INH (07:14)
[2023-12-18 07:48] VITALS: BP 103/64
[2023-12-18] MEDS: NEURONTIN 100 MG PO ×3 (08:37→22:11)
[2023-12-18] MEDS: PROTONIX 40 MG PO (08:37)
[2023-12-18] MEDS: LOPRESSOR 12.5 MG PO ×2 (08:37→20:01)
[2023-12-18] MEDS: SENOKOT 8.6 MG PO ×2 (08:37→20:01)
[2023-12-18] MEDS: MIRALAX 17 GRAMS PO (08:37)
[2023-12-18] MEDS: LIDOCAINE 4% PATCH 1 PATCH TOPICAL (08:38)
[2023-12-18] MEDS: FLUSH (NSS) 1 FLUSH IV (08:39)
--- NOTE | 2023-12-18 08:59 | PTCARENOTE ---
Received patient this morning sitting oob in the chair. R chest tube was to 20cm wall suction, with small amount of serous drainage in collection chamber and +1 level air leak noted. Mild subcutaneous emphysema palpated proximal and
posterior-lateral to CT site. CT surgery HOT KETTLE TENDER in to see the patient and assisted to the bed. CT dressing changed and suction discontinued. Pleurovac changed to Heimlich valve and tubing attached to rivers bag. Patient given AM meds, rates pain 2/10,
pulse ox 96% on RA. Patient instructed to call for assisted when getting oob, and to notify nursing with increased pain or sob, call fischer in reach.
[2023-12-18 11:43] VITALS: BP 104/65
[2023-12-18] MEDS: FLEXERIL 5 MG PO ×2 (11:45→22:11)
[2023-12-18] MEDS: ROXICODONE 10 MG PO ×2 (15:16→20:01)
[2023-12-18 15:25] VITALS: BP 108/44
--- NOTE | 2023-12-18 17:01 | CM ---
dc plans remain home with f/u from ct transitional care nurse after dc when medicaly stable.
[2023-12-18 18:50] VITALS: BP 114/69
[2023-12-18 22:14] VITALS: BP 108/54
--- NOTE | 2023-12-18 22:46 | PTCARENOTE ---
R pleural CT connected to Heimlich valve and tubing attached to rivers bag. On assessment, no crepitus noted. Pt c/o pain 7/[address] Oxycodone administered as ordered. Pt states relief. Currently in bed; call amado w/in reach.
[2023-12-19 04:41] VITALS: BP 106/56
[2023-12-19] MEDS: TYLENOL 1000 MG PO (05:39)
--- NOTE | 2023-12-19 05:39 | W.PN.CT ---
Today's Communication / Plan
-
Plan:
-No major issues overnight
-Chest tube to Heimlich valve yesterday 12/17 without incident
-CXR this AM shows stable small right apical ptx on my review. F/u official report
-D/C home with Heimlich valve
Assessment / Plan
-
Assessment:
-S/P Robotic assisted thoracic surgery [RATS] right upper lobe diagnostic and therapeutic sublobar resection/Lymph node dissection/Intercostal nerve block, interspaces 4, 5, 6, 7, 8 with bupivacaine mixture, by Dr. Kerr, 12/11/23, pod#8
-RUL mass (15 mm) with atypical cells
-NAE mass (11 mm)
-Tobacco abuse (75 pk/yr, quit ~ 2wks ago)
-COPD/Emphysema
-GERD
-Hx GI bleed/gastric ulcer S/p Colonoscopy 2017
-Crohn's colitis
-Basal cell ca face (under left eye) S/p Moh's 12/2018
-Basal cell ca nose S/P moh's 05/20, 11/16, 07/15, 01/12
Discussed patient care with: Cardiology, Nursing, Respiratory Therapy, Pharmacy and Care Team
Subjective
Procedure
S/P Robotic assisted thoracic surgery [RATS] right upper lobe diagnostic and therapeutic sublobar resection/Lymph node dissection/Intercostal nerve block, interspaces 4, 5, 6, 7, 8 with bupivacaine mixture, by Dr. Kerr, 12/11/23
-
Date of Service: December 19, 2023
Pt c/o mild incisional discomfort, otherwise feels well
Objective Data
-
Lab Results
12/14/23 05:29
12/14/23 05:29
PT 13.8 Sec (11.4-14.6) 12/01/23 09:03
INR 1.08 12/01/23 09:03
APTT Cancelled 12/01/23 08:40
Vital Signs
Vital Signs
Temp Pulse Resp BP Pulse Ox
97.8 F 79 16 108/54 90
12/19/23 04:41 12/18/23 23:00 12/19/23 04:41 12/18/23 22:14 12/19/23 04:41
CT Intake/Output/Weight
12/18/23 12/18/23 12/19/23
06:59 18:59 06:59
Intake Total 480 / 480
Output Total 30 / 100 50 / 50
Balance -30 / 760 480 / 430 -50 / 430
SaO2: 92 (RA)
Physical Exam
-
General: Awake, Oriented and AOx3
Cardiovascular: Regular rate & rhythm and No Murmurs
Respiratory: Decreased Breath Sounds (on right)
Sternum: Stable
Incision: Clean, Dry, Intact and Dressing Intact
Extremities: No Edema
Data Reviewed
-
Lab Results: Results Reviewed
Medications: Active Meds Reviewed
Chest X-Ray: Report Reviewed and Image Reviewed
ECG: Report Reviewed and Image Reviewed
[2023-12-19 06:33] VITALS: BP 96/55
[2023-12-19] MEDS: SPIRIVA RESPIMAT 2.5 MCG 2 PUFF INH (07:26)
[2023-12-19] MEDS: SYMBICORT 160/4.5 MCG INHALER 2 PUFF INH (07:26)
[2023-12-19] MEDS: LOPRESSOR 12.5 MG PO (08:47)
[2023-12-19] MEDS: PROTONIX 40 MG PO (08:47)
[2023-12-19] MEDS: SENOKOT 8.6 MG PO (08:48)
[2023-12-19] MEDS: NEURONTIN 100 MG PO (08:48)
--- NOTE | 2023-12-19 09:00 | W.[place]-PDMP ---
[place]-PDMP
-
Checked the [place]- Prescription Drug Monitoring Program website, no red flags identified; safe to proceed with prescription.
--- NOTE | 2023-12-19 09:00 | W.DCSUMMARY ---
Discharge Summary
Discharge Data
Date of Admission: 12/11/23
Date of Discharge: 12/19/23
Total time spent discharging patient (in min): 40
-
Pending Results: No
Hospital Course
Primary care physician:
Dr. Risa Chung MD.
Outpatient engineer fishing vessel:
None
Outpatient pulmonologits:
Dr. Mimi Tabor MD.
Inpatient consultants:
None
Procedures:
1. Robotic assisted thoracic surgery, right upper lobe diagnostic and therapeutic sublobar resection
2. Lymph node dissection
Primary Diagnosis:
1. Right upper lobe nodule with atypical cells
2. History of basal cell skin cancer
3. History of gastric bleeding 2018
4. Gastroesophageal reflux disease
5. Chronic obstructive pulmonary disease
6. Crohn's colitis
Secondary Diagnoses:
1. Right upper lobe nodule with atypical cells
2. History of basal cell skin cancer
3. History of gastric bleeding 2018
4. Gastroesophageal reflux disease
5. Chronic obstructive pulmonary disease
6. Crohn's colitis
HPI:
Patient is a 63-year-old female with a 85-ihqf-isii smoking history. She was also found to have a depressed pulmonary function status with DLCO 50% reduced FEV1. Patient underwent workup and was found to have a 15 x 9 mm nodule in her most recent
CT scan that demonstrated increase in size in comparison to previous scans. Patient also went PET scan with avid uptake of 7.2 max. She underwent a robotic endoluminal bronchoscopy done initially came back with atypical cells. Final pathology
demonstrated no evidence of malignancy. Due to concerning size of mass and its activity a multidisciplinary team discussion was had with the overall group consensus to pursue surgical resection. She was seen as an outpatient in consultation and
deemed an appropriate candidate to undergo the procedure described above.
Hospital course:
Patient was admitted electively. She was taken to the operating room and tolerated the procedure well. She was recovered in the PACU. Directly postoperatively the patient had an intermittent airleak. Her lung was well-expanded on chest x-ray,
and she continued -20 cm of low wall suction. On postoperative day 1 the patient was given a waterseal trial which she failed. Lung dropped, and she was placed back on suction. She was started on low-dose beta-amalia for tachycardia. On
postoperative day 2 her suction was decreased to -10 cm repeat chest x-ray was performed and was stable, however, patient then began to develop chest pain. Patient was placed back to -20 cm suction and pain improved. On postoperative day 3 chest
tube was placed back to waterseal, repeat chest x-ray showed trace pneumothorax. Chest tube was continued to waterseal. Patient began to develop subcutaneous emphysema which was increased from prior study. Chest tube was placed on -20 cm of low
wall suction. Over the next subsequent days the patient's suction was decreased and remained on -10 cm of low wall suction. On postoperative day #7, patient was placed to a Heimlich valve. 24 hours later the patient tolerated Heimlich valve.
Chest x-ray was stable with subcutaneous emphysema slowly improving. Postoperative day #8 the patient's Heimlich valve and surgical site was redressed. Patient was seen by attending physician on morning rounds, he was medically cleared to be
discharged to home. Patient will have a follow-up chest x-ray, PA and lateral, on Monday12/22/23 and on 12/29/2023.
Home medication changes:
Please pay attention to the following medication changes:
Take Cyclobenzaprine 5 mg (1/2 tab) Q8H PRN-muscle spasms
Take Gabapentin 100 mg TID-post op pain
Take Lidocaine 4% patch as needed/PRN. Apply topically remove daily/nightly for incisional pain
Take Metoprolol tartrate 12.5 mg (1/2 tab) BID-tachycardia/htn
Take Oxycodone 5 mg Q6H PRN-moderate severe pain control
Take Sennosides 8.6 BID while taking Narcotic pain medication. Hold for loose stools/diarrhea.
Chest tube instructions:
Okay to shower with chest tube. Do not bathe/submerge chest tube or incisions in water.
You will have a PA and lateral chest x-ray performed on 12/22/23 and 12/29/2023.
Please be careful not to tangle, kink, or pull chest tube.
Change dressing daily/or as instructed by Cardiothoracic visiting nurse.
Discharge Plan
-
Patient Disposition: Home (Routine Discharge)
Discharge Diagnosis/Procedures: 1. Robotic assisted thoracic surgery, right upper lobe diagnostic and therapeutic sublobar resection
2. Lymph node dissection
3.
Condition: Good
Diet: No restrictions and Regular
Activity: No strenuous activity
Additional Activity: Be mindful of chest tube getting caught, pulled, or kinked.
Driving Restrictions: Not until seen by your Dr
Bathing Restrictions: Do not take baths, or submerge incision or chest t
Blood Work: None
Others Tests: PA and lateral chest x-ray to be performed on: 12/22/23 with results sent to the office of Dr. Lamont Kerr MD.
PA and lateral chest x-ray to be performed on: 12/29/23 with results sent to the office of Dr. Lamont Kerr MD.
Wound Care: Cardiac surgery visiting nurse to assess and dress chest tube
Specialty Instructions: Weigh Daily- Call MD for wt gain/loss 3 lbs overnight/5 lbs in 1 week
Activity Restrictions/Additional Instructions:
ACTIVITY:
-No strenuous activity: no heavy lifting, pushing, pulling anything over 15 pounds for one month
-continue to use stairs as tolerated
DRIVING RESTRICTIONS:
-No driving for one month or until approved by your surgeon
WOUND CARE:
-Shower daily. Use soap & water.
-No lotions, creams or powders on incision area.
DIET:
-Resume previous diet.
SPECIALTY INSTRUCTIONS:
-Weigh yourself daily. Call your physician for any weight gain/loss of 3 lbs overnight or 5 lbs in one week.
-If you smoke, you are instructed to quit. The [place] smoking hotline phone number is [phone]
Okay to shower with chest tube. Do not bathe/submerge chest tube or incisions in water.
You will have a PA and lateral chest x-ray performed on 12/22/23 and 12/29/2023.
Please be careful not to tangle, kink, or pull chest tube.
Change dressing daily/or as instructed by Cardiothoracic visiting nurse.
Referrals:
CT Transitional Care Nurse [Outside] (The Cardiothoracic Transitional Care Nurse will call you to set up a visit in 1-2 days.)
Marcy Chung MD [Family Provider] -
Lamont Kerr MD [Active] - 12/28/23 2:45 pm
Additional Discharge Medication Instructions: Please pay attention to the following medication changes:
Take Cyclobenzaprine 5 mg (1/2 tab) Q8H PRN-muscle spasms
Take Gabapentin 100 mg TID-post op pain
Take Lidocaine 4% patch as needed/PRN. Apply topically remove daily/nightly for incisional pain
Take Metoprolol tartrate 12.5 mg (1/2 tab) BID-tachycardia/htn
Take Oxycodone 5 mg Q6H PRN-moderate severe pain control
Take Sennosides 8.6 BID while taking Narcotic pain medication. Hold for loose stools/diarrhea.
Prescriptions:
New
cyclobenzaprine 10 mg Tablet
5 mg PO Q8HPRN PRN (Reason: muscle spasm) Qty: 30 0RF
lidocaine 4 % Adhesive Patch,Medicated
1 patch topical DAILY PRN (Reason: incisional pain ) Qty: 30 0RF
Rx Instructions:
Apply topically for incisional pain, remove patch daily
metoprolol tartrate 25 mg Tablet
12.5 mg PO BID Qty: 30 1RF
gabapentin 100 mg Capsule
100 mg PO TID Qty: 30 0RF
Rx Instructions:
After 1 week, begin weaning yourself off this medication. Take 1 tab BID x 1 day then take 1 tab daily x 1 day
Remove Patch [Remove Lidocaine Patch]
1 patch topical DAILY@2000 Qty: 1 0RF
Rx Instructions:
Remove patch daily/nightly
sennosides [Senna Laxative] 8.6 mg Tablet
8.6 mg PO BID Qty: 60 0RF
Rx Instructions:
Take daily while taking narcotic medications. Hold for loose stools/diarrhea
oxycodone 5 mg tablet
5 mg PO Q6H PRN (Reason: moderate-severe pain) Qty: 28 0RF
Rx Instructions:
Ongoing pain control. Attending Dr. Lamont Kerr MD.
Continued
Spiriva Respimat 1 PUFF mist
2 puff inhalation DAILY
fluticasone furoate-vilanterol [Breo Ellipta] 1 EACH blister with device
1 ea inhalation DAILY
acetaminophen 325 MG tablet
650 mg PO Q4HPRN PRN (Reason: headache)
cholecalciferol (vitamin D3) [Vitamin D3] 25 mcg (1,000 unit) Tablet
25 mcg PO DAILY
famotidine 40 mg Tablet
40 mg PO HS
mesalamine 1.2 gram Tablet,Delayed Release (Dr/Ec)
4.8 g PO DAILY
pantoprazole 40 MG tablet,delayed release (DR/EC)
40 mg PO DAILY
ursodiol 300 mg Capsule
300 mg PO BID
Vitamin C 1,000 mg Tablet Extended Release
1,000 mg PO DAILY
cyanocobalamin (vitamin B-12) [Vitamin B-12] 1,000 mcg Tablet
1,000 mcg PO DAILY
alprazolam 0.25 mg Tablet
0.25 mg PO DAILY PRN (Reason: anxiety)
Patient Comments:
only taken once and 'didn't like it'
bupropion HCl tablet
75 mg PO BID
Patient Comments:
patient has not started taking
Rx Instructions:
take 1 tablet twice a day for 2 weeks, then 2 tablets twice a day after as tolerated.
Discharge Orders:
Discharge Patient (As Directed); Ordered 12/19/23
Ordered By: Edna Gan
Care Plan Goals
Care Plan Goals:
Problem: Readiness for enhanced knowledge related to diagnosis and treatment plan
Goal: Understand your diagnosis and treatment plan needs, including medications if applicable.
Instructions: Know your diagnosis, underlying causes and treatment plan options, including medications if applicable. Consult with your health care team to learn about your diagnosis and treatment plan, including medications if applicable.
Discharge Date and Time
Print Language: FAROESE
[2023-12-19] MEDS: LIDOCAINE 4% PATCH TOPICAL (09:30)
[2023-12-19] MEDS: MIRALAX PO (10:36)
[2023-12-19 10:59] VITALS: BP 109/66
[2023-12-19 11:03] VITALS: BP 109/66
--- NOTE | 2023-12-19 12:15 | PTCARENOTE ---
Pt received this am with no c/o of any pain. Chest tube intact and draining yellow fluid. Pt oob ad luiz. Pt discharged to home with her . Discharge instructions given and reviewed and pt and her with good understanding and all
questions answered.
== END 2023-12-19 11:09 | disposition home or self-care (01) | DRG 164 ==
LOC: IVU 05:14
PROVIDERS: Clinical Nurse Specialist Acute Care; Physician Assistant Medical; ADMITTING PHYSICIAN Thoracic Surgery (Cardiothoracic Vascular Surgery); FAMILY PHYSICIAN Internal Medicine
PROC: 0BBC4ZZ Excision of Right Upper Lung Lobe, Percutaneous Endoscopic Approach (ICD-10-PCS; 2023-12-11)
PROC: 8E0W4CZ Robotic Assisted Procedure of Trunk Region, Percutaneous Endoscopic Approach (ICD-10-PCS; 2023-12-11)
PROC: 07B74ZX Excision of Thorax Lymphatic, Percutaneous Endoscopic Approach, Diagnostic (ICD-10-PCS; 2023-12-11)
DX: C34.11 Malignant neoplasm of upper lobe, right bronchus or lung (principal); J95.811 Postprocedural pneumothorax; K50.10 Crohn's disease of large intestine without complications; I10 Essential (primary) hypertension; J44.9 Chronic obstructive pulmonary disease, unspecified; K21.9 Gastro-esophageal reflux disease without esophagitis; D63.0 Anemia in neoplastic disease; J43.9 Emphysema, unspecified; R00.0 Tachycardia, unspecified; Z11.52 Encounter for screening for COVID-19; Z85.828 Personal history of other malignant neoplasm of skin; Z87.891 Personal history of nicotine dependence; Z79.899 Other long term (current) drug therapy
CPT/HCPCS: 88305; 88307; 88312; 88332; 36415; 71045; 80048; 80053; 81003; 81015; 81459; 82248; 83036; 83735; 85014; 85018; 85025; 85027; 85049; 85610; 86850; 86900; 86901; 87070; 87811; 88313; 88331; 88341; 88342; 93005; 94640; 99406

== ENCOUNTER → 2023-12-22 11:00 | Outpatient (REF) | payer OTHER, SELFPAY | LOC: HWRAD 11:00 | PROVIDERS: ATTENDING PHYSICIAN Thoracic Surgery (Cardiothoracic Vascular Surgery); FAMILY PHYSICIAN Internal Medicine | DX: J95.811 Postprocedural pneumothorax (principal) | CPT/HCPCS: 71046 ==

== ENCOUNTER → 2023-12-22 13:21 | Outpatient (REF) | payer OTHER, SELFPAY | LOC: RAD 13:21 | PROVIDERS: ATTENDING PHYSICIAN Nurse Practitioner Acute Care; FAMILY PHYSICIAN Internal Medicine | DX: J95.811 Postprocedural pneumothorax (principal) | CPT/HCPCS: 71046 ==

== ENCOUNTER → 2023-12-25 11:25 | Outpatient (REF) | payer OTHER, SELFPAY | LOC: RAD 11:25 | PROVIDERS: ATTENDING PHYSICIAN Thoracic Surgery (Cardiothoracic Vascular Surgery); FAMILY PHYSICIAN Internal Medicine | DX: J95.811 Postprocedural pneumothorax (principal) | CPT/HCPCS: 71046 ==

== ENCOUNTER 2024-01-02 02:01 | Inpatient (IN) | payer OTHER, SELFPAY ==
[2024-01-01 23:53] VITALS: BP 121/63
[2024-01-02] VITALS (12 sets, daily range): BP systolic 84–134; BP diastolic 60–101; BMI 30.8
--- NOTE | 2024-01-02 01:16 | ED.GENMED ---
History of Present Illness
General
Chief Complaint: Catheter/Tube Problem
Source: patient
Exam Limitations: none
Time Seen by Provider: 01/02/24 01:03
History of Present Illness
History of Present Illness:
See MDM
Past History
Past History
ED Past Medical History: COPD and GERD
ED Past Surgical History: and Tonsilectomy
Social History
Tobacco: Smoker
Alcohol: Other
Living: with family
Employment: Employed
Family History
Family History: Unable to obtain
Phy Exam
Physical Exam
Physical Exam:
See MDM
Course
Orders/Labs/Results
Orders:
Orders
01/02/24 00:01
Chest [CR Chest - 2 Views ] Urgent
Comment:
Reason For Exam: chest tube fell out.
01/02/24 01:41
Admit Patient As Directed
Co-Sign Provider:
Level of Care: Inpatient admission
Assign to:: CVICU- Telemetry
Physician / Group: Kerr/CT Surgery
Diagnosis: Right pneumothorax
Reason for Hospitalization: Right pneumothorax
Expected length of stay greater than two midnights?: Yes
ELOS- Estimated Length of Stay in days: 4
I certify the patient meets the requirements for IP care: Yes
01/02/24 01:42
PRN Pain Medication Management As Directed
May give lesser potent ordered pain med per pt: Yes
preference::
Protocol:: Medication orders for pain may be administered in a
manner that supports deferring to patient preference
when the pt is:
- Requesting an ordered lesser potent pain medication.
Least to most potent pain medications are defined
as: acetaminophen < NSAID < tramadol < opioids
(morphine, oxycodone, hydromorphone).
- Requesting a lesser dose of the same medication IF
ORDERED.
- Requesting a less intrusive route of administration
if both routes are prescribed by the provider (PO <
IV).
01/02/24 01:47
VTE Contraindication Routine
VTE Mechanical Device Contraindication: Surgical Contraindication
Pharmocologic Contraindication: Medical Contraindication
Vital Signs As Directed
Frequency: Per unit guidelines
01/02/24 01:48
Acetaminophen [Tylenol] 1,000 mg PO Q6HPRN PRN
HYDROmorphone [Dilaudid] 0.25 mg IV Q3HPRN PRN
Tramadol HCl [Ultram] 25 mg PO Q6HPRN PRN
01/02/24 01:50
Tramadol HCl [Ultram] 50 mg PO Q6HPRN PRN
01/02/24 03:35
BMP [Basic Metabolic Panel] IN AM
CBC/No Diff [Complete Blood Count/No Diff] IN AM
01/03/24 06:00
CXR Port [CR Chest Portable - 1 View] IN AM
Comment:
Reason For Exam: Right pneumothorax
Reason Study Needs to be Portable: Unable to Transport
01/04/24 06:00
CXR Port [CR Chest Portable - 1 View] IN AM
Comment:
Reason For Exam: Right pneumothorax
Reason Study Needs to be Portable: Unable to Transport
01/05/24 06:00
CXR Port [CR Chest Portable - 1 View] IN AM
Comment:
Reason For Exam: Right pneumothorax
Reason Study Needs to be Portable: Unable to Transport
01/06/24 06:00
CXR Port [CR Chest Portable - 1 View] IN AM
Comment:
Reason For Exam: Right pneumothorax
Reason Study Needs to be Portable: Unable to Transport
Vital Signs
Initial and Last Documented VS:
Initial Vital Signs
Temp Pulse Resp BP Pulse Ox
98.0 F 86 20 121/63 94
01/01/24 23:53 01/01/24 23:53 01/01/24 23:53 01/01/24 23:53 01/01/24 23:53
Last Documented Vital Signs
Temp Pulse Resp BP Pulse Ox
98 F 74 16 115/72 93
01/02/24 11:39 01/02/24 14:00 01/02/24 11:39 01/02/24 11:36 01/02/24 11:39
Procedures
Chest Tube
Indication for procedure:: Right pneumothorax
Procedure completed by: Jag Steele DO
Consent form signed: Yes
Anesthesia: 1% Lidocaine
Chest tube placed to: right side
Size of chest tube (cm): 29
Preparation: cleaned with Hibiclens
Chest tube position: mid axillary line
Chest tube sutured to skin?: Yes
Chest tube complications: none
MDM/Problems Addressed
Differential Diagnosis Includes:
HPI and MDM Narrative:
63-year-old female presenting with shortness of breath. Patient had recent lung lobectomy which was complicated by pneumothorax requiring a chest tube. Patient was recently discharged the hospital. Patient states she leaned over and the chest
tube came out on its own. She came in for evaluation. CT surgery aware. The plan was to discharge home if pneumothorax was stable. However, patient is mildly short of breath and chest x-ray shows worsening pneumothorax
Physical exam
General: Well appearing and non-toxic
HEENT: protecting airway
Neck: appears supple
CV: No evidence of cyanosis
Resp: No accessory muscle use. Decreased breath sounds to right apices
Abd: Non-distended
Extremities: No deformities
Neuro: alert
Psych: Normal affect
Skin: Intact
Problems Addressed including Acute and Chronic Conditions affecting care:
1. Postsurgical pneumothorax
Acuity: acute
Prognosis: unstable
Details: Chest tube fell out at home and pneumothorax is worse
2. [ ]
Acuity: acute
Prognosis: stable
Details:
3. [ ]
Acuity: acute
Prognosis: stable
Details:
4. [ ]
Acuity: acute
Prognosis: stable
Details:
5. [ ]
Acuity:
Prognosis:
Details:
Updates
Repeat chest x-ray shows worsening pneumothorax. Case discussed with CT surgery. Patient consented for pigtail chest tube and patient tolerated procedure well. Pigtail size was 14 Sudanese, 29 cm
Differential Diagnosis (but not limited to): Atelectasis, pneumothorax
Testing considered: EKG
Drug therapy (if applicable): OTC meds, please see d/c instruction regarding Rx drugs
Amount and/or Complexity of Data Reviewed
Clinical info obtained from: Patient
External data reviewed: Recent lung lobectomy with postsurgical complication involving pneumothorax
Labs I independently reviewed (but not limited to): N/A
Radiology: X-ray independently reviewed: Right send pneumothorax is worse
Pulse Ox: not hypoxic
EKG independently reviewed: N/A
In Store Marketing Representative: N/A
Critical Care: N/A
Risk of Complication:
Social Determinants of health: Good social support
Discussed with other providers: CT surgery
Escalation of Care includes Admit/Obs: Given the need for chest tube, will admit
Occasional wrong word or 'sound a like' substitutions may have occurred due to the inherent limitations of voice recognition software. Read the chart carefully and recognize, using context, where substitutions have occurred.
*Critical Care Note
Total Time (30-74mins, 75-104mins- exclusive of procedures): Not Applicable
ED Attending Note
-
Portions of this chart may have been created with voice recognition software.� Occasional wrong word or��sound alike� substitutions may have occurred due to the inherent limitations of voice recognition software.
Discharge Plan
Departure
Patient Disposition: Admit
Date of Disposition: 01/02/24
Time of Disposition: 02:15
Admit to: CVICU
Presentation/result/management discussed w/ accepting MD/DO: CT surgery
Discharge Problem:
Pneumothorax
Interventions
Interventions:
*Risk Screen - Suicide Last Done: 01/01/24 23:57
*General Assessment Last Done: 01/02/24 02:44
*Neglect/Abuse Screening Last Done: 01/02/24 02:44
ED- Fall Risk Assessment Last Done: 01/02/24 02:44
*ED COVID-19 Vaccine History Last Done: 01/02/24 02:55
*Nursing Disposition Last Done: 01/02/24 02:44
Discharge Date and Time
Discharge Date/Time: 01/02/24 02:45
[2024-01-02] MEDS: MORPHINE SULFATE 4 MG IV (02:20)
[2024-01-02] MEDS: VALIUM INJECTION 2 MG IV (02:21)
--- NOTE | 2024-01-02 03:04 | HPS.HSE ---
Family Physician
-
Family Physician: Marcy Chung
Chief Complaint
-
SOB
History of Present Illness
63 y/o pleasant woman, known to our service, S/P Robotic assisted thoracic surgery with right upper lobe diagnostic and therapeutic sublobar resection/Lymph node dissection, by Dr. Kerr, 12/11/23, discharged home 12/19/23. Pt called answering service
the night of 01/01/24 with c/o mild SOB after waking up to find that she had inadvertently removed her chest tube. She was advised to present to the ED for an evaluation. -ED Dr. Jga Steele was notified to expect her arrival. Of note, pt was
sent home with Heimlich valve for tiny right apical ptx on cxr 12/18. Also noted to have small SQ emphysema @ right hemithorax. Pt had a recent cxr on 12/25/23 which showed ~15% right apical ptx. She was scheduled to get a repeat cxr before her f/u
appointment in the office with Dr. Kerr on Monday01/03/24. CXR obtained in the ED showed worsening right apical ptx (~25%) and given c/o SOB the decision was made to place a pigtail chest tube, which was successfully placed by Dr. Steele in the
ED with resolution of pneumothorax. Pt was admitted to CT Surgery service in CVICU-telemetry, as there were no beds available in the IVU.
Medical History
Past Medical History
Past Medical History: Reports Other
Additional Past Medical History:
-Recurrent small right apical ptx with SOB S/P placement of right pigtail chest tube by ER (Dr. Jag Steele), 01/02/24
-S/P Robotic assisted thoracic surgery with right upper lobe diagnostic and therapeutic sublobar resection/Lymph node dissection, by Dr. Kerr, 12/11/23
-RUL mass (15 mm) with atypical cells
-NAE mass (11 mm)
-Tobacco abuse (75 pk/yr, quit ~ 1month ago)
-COPD/Emphysema
-GERD
-Hx GI bleed/gastric ulcer S/p Colonoscopy 2017
-Crohn's colitis
-Basal cell ca face (under left eye) S/p Moh's 12/2018
-Basal cell ca nose S/P moh's 05/20, 11/16, 07/15, 01/12
Past Surgical History: Reports Other
Additional Past Surgical History:
-S/P placement of right pigtail chest tube by ER (Dr. Jag Steele), 01/02/24
-S/P Robotic assisted thoracic surgery with right upper lobe diagnostic and therapeutic sublobar resection/Lymph node dissection, by Dr. Kerr, 12/11/23
-Basal cell ca face (under left eye) S/p Moh's 12/2018
-Basal cell ca nose S/P moh's 05/20, 11/16, 07/15, 01/12
-S/p Colonoscopy 2017
Social History
Tobacco: Former Smoker (75 pk/yr, quit ~ 1 month ago)
Alcohol: Occasional
Personal: (lives with her )
Living: With Family
Employment: Employed (with [employer])
Family History
Family History: Not pertinent
Allergies / Home Medications
Allergies reflects when Allergies were last updated in [employer].
Home Medications with original date entered in [employer]
Allergy/Medication List:
No Known Drug Allergies
Review of Systems
-
Respiratory: Reports Other (SOB)
Physical Exam
Vital Signs
Vital Signs
Temp Pulse Resp BP Pulse Ox
98.0 F 90 24 130/101 92
01/01/24 23:53 01/02/24 02:30 01/02/24 02:30 01/02/24 02:08 01/02/24 02:15
Physical Exam
General: Well Developed, Well Nourished, No Apparent Distress, Comfortable and Pain (mild chest tube insertion site pain)
Respiratory: Decreased Breath Sounds (on right)
Cardiac: S1/S2 and Regular Rhythm
Breast: Deferred by me
GI: Non Tender, Non Distended and Normal Bowel Sounds
Rectal: Deferred by Provider
Genito-urinary: Deferred by me
Musculoskeletal: No Clubbing and No Cyanosis
Skin: Warm and Dry
Neuro: Awake, Alert, Oriented, AO x 3 and No Motor Deficits
Hematologic/Lymphatic: No Lymphadenopathy
Psych: Calm
Data Reviewed
-
Diagnostic Radiology: Image Personally Visualized and interpreted, Report Reviewed by me, Discussed with Physician, Discussed with Nurse, Discussed with Patient and Discussed with Family ()
Impression/Plan
-
IMPRESSION:
-Right apical ptx s/p placement of right pigtail chest tube by ER (Dr. Jag Steele), 01/02/24
-S/P Robotic assisted thoracic surgery with right upper lobe diagnostic and therapeutic sublobar resection/Lymph node dissection, by Dr. Kerr, 12/11/23, d/c'd home on 12/19/23 with a Heimlich valve. Returns to -ED on 01/01/24 after inadvertently
removing chest tube/heimlich
PLAN:
-Right chest tube management
-Pain control
[2024-01-02] MEDS: TYLENOL 1000 MG PO ×2 (03:29→11:37)
[2024-01-02] MEDS: DILAUDID 0.25 MG IV ×2 (03:29→21:36)
--- NOTE | 2024-01-02 03:46 | PTCARENOTE ---
pt admitted into 2259. Full admission and assessment completed per worklist. R pleural chest tube connected to wall suction, no drainage in chamber. pt medicated for 10/10 pain with .25 Dilaudid. labs drawn and sent. now resting comfortably with
call fischer within reach .
[2024-01-02 04:06] LABS: Blood Urea Nitrogen 30 mg/dl (7-17); Calcium 9.5 mg/dl (8.4-10.2); Carbon Dioxide 26 mmol/L (22-30); Chloride 105 mmol/L (98-107); Estimated Creatinine Clearance 60 ml/min; Glucose 112 mg/dl (70-99); Potassium 4.7 mmol/L (3.5-5.1); Sodium 145 mmol/L (135-145); eGFR > 60.00
[2024-01-02 04:13] LABS: Hematocrit 41.5 % (37.0-47.0); Hemoglobin 13.5 g/dL (12.0-16.0); Mean Corp Hgb Conc. 32.5 g/dL (33.0-37.0); Mean Corpuscular Hgb 29.4 pg (27.0-31.0); Mean Corpuscular Volume 90.4 fL (81.0-99.0); Mean Platelet Volume 9.1 fL (7.4-10.4); Platelet Count 273 10^3/uL (130-400); Red Blood Cell Count 4.59 10^6/uL (4.20-5.40); Red Cell Dist. Width 13.2 % (11.5-14.5)
--- NOTE | 2024-01-02 08:00 | PTCARENOTE ---
pt received from previous RN, oriented, in bed. SR on the monitor, HR 80-90s. SBP 100s. palpable pulses, no edema. pt on RA, 92-94% POX. lungs clear. CTx1, no air leak or crepitus noted. pt abdomen s/n, denies n/v. diet tolerated well. voids on BSC.
chest tube site c/d/i. PIV. home meds reviewed. see worklist for VS, I&O, and assessment.
[2024-01-02] MEDS: SPIRIVA RESPIMAT 2.5 MCG 2 PUFF INH (08:44)
[2024-01-02] MEDS: VITAMIN D3 (cholecalciferol) 25 MCG PO (09:35)
[2024-01-02] MEDS: VITAMIN C 1000 MG PO (09:35)
[2024-01-02] MEDS: VITAMIN B-12 1000 MCG PO (09:35)
[2024-01-02] MEDS: LOPRESSOR 12.5 MG PO ×2 (09:35→19:34)
[2024-01-02] MEDS: SENOKOT 8.6 MG PO ×2 (09:35→19:36)
[2024-01-02] MEDS: PROTONIX 40 MG PO (09:35)
[2024-01-02] MEDS: FLEXERIL 5 MG PO (09:36)
[2024-01-02] MEDS: WELLBUTRIN REGULAR RELEASE 75 MG PO ×2 (09:38→19:36)
[2024-01-02] MEDS: ACTIGALL 300 MG PO ×2 (09:38→19:36)
--- NOTE | 2024-01-02 12:15 | PTCARENOTE ---
pt VSS, no changes in assessment. tylenol given for pain as ordered.
--- NOTE | 2024-01-02 14:36 | CM ---
spoke to pt in room, she is prev indep, lives with her husb in a 2 story home with a first floor set up and no steps to enter. she denies any dme's. plan is for dc to home when medically stable.
[2024-01-02] MEDS: NEURONTIN 100 MG PO ×2 (16:41→21:36)
--- NOTE | 2024-01-02 16:45 | PTCARENOTE ---
pt placed self back to bed ~20min before RN arrived in room, upon assessment, continuous air leak in atrium, pt sat forward and chest tube completely dislodged. pt denies SOB. occlusive dressing placed. POX 92-93%. BOGDAN Black at bedside. CXR completed.
VSS.
--- NOTE | 2024-01-02 17:53 | W.PN.UPDATE ---
Update Note
Progress Note Update
Brief CTS Note
Notified by nursing that the chest tube was dislodged while the patient was getting back into bed by herself.
On my evaluation, the chest tube is completely out of the chest.
Patient is stable, on RA, O2 Sat 93%.
STAT CXR showed recurrence of the right pneumothorax, now moderate.
Discussed with Dr. Kerr. Will have IR replace apical tube.
Plan for blood patch in AM.
--- NOTE | 2024-01-02 18:52 | W.PN.UPDATE ---
Update Note
Progress Note Update
14 Fr right chest tube placed, with much improvement in right pneumothorax. Small persistent residual right apical pneumothorax, which hopefully will resolve over time.
--- NOTE | 2024-01-02 20:10 | PTCARENOTE ---
Received pt from IR- New right sided chest tube in place to 20cm suction, no air leak noted at this time. Dressing intact, no crepitus noted. Pt reports pain at tolerable level. POX 93% on RA. Lungs dec, but clear. Occasional cough. [place]OW[place]. HR in the
80's in NSR on the monitor. + bowel, round abd. Palpable peripheral pulses present. +1 B/L LE edema present. Left AC INT capped, Left forearm INT capped. Pt positioned per comfort, sitting up in bed attempting to eat some dinner. at son at
bedside. Will continue to monitor.
[2024-01-02] MEDS: PEPCID 40 MG PO (21:36)
--- NOTE | 2024-01-02 21:42 | PTCARENOTE ---
Pt woke up complaining of 8/10 pain at chest tube site. Pain medication administered as ordered. No other changes in assessment noted at this time. Will continue to monitor.
--- NOTE | 2024-01-02 23:16 | PTCARENOTE ---
Pt resting comfortably. 2LO2 NC applied. No other changes in assessment. Will continue to monitor.
[2024-01-03] VITALS (7 sets, daily range): BP systolic 114–141; BP diastolic 67–77; BMI 30.6
[2024-01-03] MEDS: REGLAN 10 MG IV ×3 (00:04→11:43)
--- NOTE | 2024-01-03 00:13 | PTCARENOTE ---
Pt complaining of constipation, pt states feeling bloated with upset stomach. ED notified, orders obtained. Upon sitting pt up in bed, pt began vomiting everywhere. Large amount of vomit. Pt cleaned up. teethe brushed. Reglan administered as
ordered. Pt reports feeling much better. Will continue to monitor.
[2024-01-03] MEDS: DILAUDID 0.25 MG IV (01:36)
--- NOTE | 2024-01-03 04:12 | W.PN.CT ---
Today's Communication / Plan
-
Plan:
-Pt inadvertently removed chest tube yesterday 01/01 with increased right apical ptx S/P 14F chest tube placement by IR, 01/02/24
-Chest tube currently on -20 cmH2o wall suction with 1+ air leak noted with cough
-CXR this AM shows stable small right apical ptx on my review. F/u official report
-Probable blood patch/pleurodesis by Dr. Kerr today
Assessment / Plan
-
Assessment:
-Inadvertent removal of chest tube by pt with increased right apical ptx S/P 14F chest tube placement by IR, 01/02/24
-Inadvertent removal of chest tube at home by pt with worsened small right apical ptx and SOB S/P placement of right pigtail chest tube by ER (Dr. Jag Steele), 01/02/24 in the AM
-S/P Robotic assisted thoracic surgery with right upper lobe diagnostic and therapeutic sublobar resection/Lymph node dissection, by Dr. Krer, 12/11/23
-RUL mass (15 mm) with atypical cells
-NAE mass (11 mm)
-Tobacco abuse (75 pk/yr, quit ~ 1month ago)
-COPD/Emphysema
-GERD
-Hx GI bleed/gastric ulcer S/p Colonoscopy 2017
-Crohn's colitis
-Basal cell ca face (under left eye) S/p Moh's 12/2018
-Basal cell ca nose S/P moh's 05/20, 11/16, 07/15, 01/12
Discussed patient care with: Cardiology, Nursing, Respiratory Therapy, Pharmacy and Care Team
Subjective
-
Date of Service: January 03, 2024
Pt c/o constipation and abdominal discomfort last night, vomited x 2 last night
Objective Data
-
Lab Results
01/02/24 03:35
01/02/24 03:35
Vital Signs
Vital Signs
Temp Pulse Resp BP Pulse Ox
98.1 F 86 20 134/75 95
01/02/24 23:15 01/02/24 23:13 01/02/24 23:15 01/02/24 23:13 01/02/24 23:15
CT Intake/Output/Weight
01/02/24 01/02/24 01/03/24
06:59 18:59 06:59
Intake Total 480 / 480
Output Total 215 / 215
Balance 480 / 480 -215 / -215
SaO2: 95 (RA)
Physical Exam
-
General: Awake, Oriented and AOx3
Cardiovascular: Regular rate & rhythm
Respiratory: Decreased Breath Sounds (on right)
Incision: Clean, Dry, Intact and Dressing Intact
Extremities: No Edema
Data Reviewed
-
Lab Results: Results Reviewed
Medications: Active Meds Reviewed
Chest X-Ray: Report Reviewed and Image Reviewed
ECG: Report Reviewed and Image Reviewed
--- NOTE | 2024-01-03 06:16 | PTCARENOTE ---
Pt up this am with another episode of vomiting. Pt vomited large amount of liquid brown emesis. PRN Reglan administered as ordered. Pt assisted to bathroom to wash up, use bathroom, brush teethe. Pt now sitting in chair per comfort. Pt reports
nausea subsided at this time. Continued complaints of constipation and abd Fullness. Round soft abd, non tender to palpation, pt reports passing gas. HR in the low 100's ST on the monitor. No other changes in assessment noted at this time. Will
continue to monitor.
[2024-01-03] MEDS: SYMBICORT 160/4.5 MCG INHALER 2 PUFF INH ×2 (07:21→19:21)
[2024-01-03] MEDS: SPIRIVA RESPIMAT 2.5 MCG 2 PUFF INH (07:21)
--- NOTE | 2024-01-03 07:30 | PTCARENOTE ---
Assumed care of patient from title inspector RN. AAO x 3 Sitting up in the chair. SR/ST on monitor. Room air 95%. Rt lateral chest tube to -20 cm suction, no air leak noted. Small amount of crepitus noted on palpation above the insertion site.
Abdomen soft, non tender, and denies nausea. Hypoactive bowel sounds noted in 4/4 quadrants. Tolerating po liquids at present. Dulcolax suppository given with Am meds. Plan to transfer to IVU this am.
[2024-01-03] MEDS: PROTONIX 40 MG PO (08:19)
[2024-01-03] MEDS: NEURONTIN 100 MG PO ×3 (08:20→22:34)
[2024-01-03] MEDS: DULCOLAX 10 MG RECTAL (08:20)
[2024-01-03] MEDS: NON-FORMULARY ITEM 1 GRAMS PO (08:20)
[2024-01-03] MEDS: LOPRESSOR 12.5 MG PO ×2 (08:20→19:22)
[2024-01-03] MEDS: WELLBUTRIN REGULAR RELEASE 75 MG PO ×2 (08:20→19:22)
[2024-01-03] MEDS: ACTIGALL 300 MG PO ×2 (08:20→19:22)
[2024-01-03] MEDS: SENOKOT 8.6 MG PO ×2 (08:20→19:22)
[2024-01-03] MEDS: VITAMIN B-12 PO (09:15)
[2024-01-03] MEDS: VITAMIN D3 (cholecalciferol) PO (09:16)
[2024-01-03] MEDS: VITAMIN C PO (09:16)
--- NOTE | 2024-01-03 09:45 | PTCARENOTE ---
Rec'd pt from CVICU awake and alert sitting in chair. Pt with Rt pleural chest tube to -20cm suction. Pt with +1 air leak. Pt placed back to bed, blood bath done by KASI Wood. Pt on bed rest for 2 hours. See worklist for VS/I and O and assessments.
--- NOTE | 2024-01-03 12:20 | PTCARENOTE ---
Pt assisted oob up in chair at 1145, no air leak noted, -10cm suction. CXR done. Pt vomited prior to getting up. Reglan given and patient denies nausea.
--- NOTE | 2024-01-03 12:56 | PTCARENOTE ---
pt placed back on -20cm suction as per KASI Wood.
--- NOTE | 2024-01-03 14:03 | CM ---
Reviewed chart. Mrs. Portillo was transferred to IVU. Met with Mrs. Portillo and she was is some discomfort and will come back at a later time to review discharge plans. Prior to admission she resides with her spouse in a two story home. She
has a first floor set-up. Prior to admission she was independent with ambulation and adls. She does not have any DME in the home. She has a prescription plan. Will review [facility] with her. Medical work-up in progress. The discharge plan
is to return home with her spouse and VNA services if indicated when medically stable.
[2024-01-03] MEDS: TYLENOL 1000 MG PO ×2 (14:41→20:41)
[2024-01-03] MEDS: FLEXERIL 5 MG PO (20:41)
[2024-01-03] MEDS: PEPCID 40 MG PO (22:34)
--- NOTE | 2024-01-03 23:34 | PTCARENOTE ---
Pt received start of shift, HR SR/ST. Pt w/ at bedside. Chest tube connected to wall suction, -20cm on pleurovac. No air leak, tidaling, or crepitus observed. Sanguineous drainage draining. Insertion site CDI. Pt assisted in ambulating to
bathroom and back - tolerated well. Pt c/o 4/[address] insertion site. PRN tylenol and flexeril administered - see MAY.
[2024-01-04] VITALS (7 sets, daily range): BP systolic 114–135; BP diastolic 60–74
[2024-01-04] MEDS: SYMBICORT 160/4.5 MCG INHALER 2 PUFF INH ×2 (08:09→19:41)
[2024-01-04] MEDS: SPIRIVA RESPIMAT 2.5 MCG 2 PUFF INH (08:09)
[2024-01-04] MEDS: LOPRESSOR 12.5 MG PO ×2 (08:17→19:33)
[2024-01-04] MEDS: PROTONIX 40 MG PO (08:17)
[2024-01-04] MEDS: ACTIGALL 300 MG PO ×2 (08:17→19:33)
[2024-01-04] MEDS: NEURONTIN 100 MG PO ×3 (08:17→22:16)
[2024-01-04] MEDS: VITAMIN C 1000 MG PO (08:17)
[2024-01-04] MEDS: VITAMIN B-12 1000 MCG PO (08:18)
[2024-01-04] MEDS: SENOKOT 8.6 MG PO ×2 (08:18→19:33)
[2024-01-04] MEDS: VITAMIN D3 (cholecalciferol) 25 MCG PO (08:18)
[2024-01-04] MEDS: NON-FORMULARY ITEM 1.2 GRAMS PO (08:18)
[2024-01-04] MEDS: WELLBUTRIN REGULAR RELEASE 75 MG PO ×2 (08:18→19:39)
[2024-01-04] MEDS: ULTRAM 50 MG PO ×2 (09:03→16:58)
--- NOTE | 2024-01-04 10:14 | W.PN.CT ---
Today's Communication / Plan
-
No air leak this AM, CXR stable. Changed to water seal at 845am, will repeat CXR at 12:30pm.
Assessment / Plan
-
Assessment:
-Inadvertent removal of chest tube by pt with increased right apical ptx S/P 14F chest tube placement by IR, 01/02/24
-Inadvertent removal of chest tube at home by pt with worsened small right apical ptx and SOB S/P placement of right pigtail chest tube by ER (Dr. Jag Steele), 01/02/24 in the AM
-S/P Robotic assisted thoracic surgery with right upper lobe diagnostic and therapeutic sublobar resection/Lymph node dissection, by Dr. Kerr, 12/11/23
-RUL mass (15 mm) with atypical cells
-NAE mass (11 mm)
-Tobacco abuse (75 pk/yr, quit ~ 1month ago)
-COPD/Emphysema
-GERD
-Hx GI bleed/gastric ulcer S/p Colonoscopy 2017
-Crohn's colitis
-Basal cell ca face (under left eye) S/p Moh's 12/2018
-Basal cell ca nose S/P moh's 05/20, 11/16, 07/15, 01/12
Subjective
Procedure
s/p RA RUL sublobar resection 12/10, readmitted 01/01 with dislodged chest tube
-
Date of Service: January 04, 2024
Pt seen this am, reports feeling well. Some positional pain in the right chest from tube. no issues overnight. no SOB.
Objective Data
-
Lab Results
01/02/24 03:35
01/02/24 03:35
Vital Signs
Vital Signs
Temp Pulse Resp BP Pulse Ox
97.5 F 92 16 118/60 92
01/04/24 08:00 01/04/24 08:10 01/04/24 08:10 01/04/24 08:10 01/04/24 08:10
CT Intake/Output/Weight
01/03/24 01/04/24 01/04/24
18:59 06:59 18:59
Intake Total 120 / 120 240 / 240
Output Total 120 / 120 5 / 5
Balance 0 / 0 235 / 235
SaO2: 92
Physical Exam
-
General: AOx3
Cardiovascular: Regular rate & rhythm
Respiratory: Clear
Incision: Clean and Intact
Data Reviewed
-
Chest X-Ray: Image Reviewed
--- NOTE | 2024-01-04 10:21 | PTCARENOTE ---
Patient out of bed to chair, assisted to the bathroom. Right chest tube to water seal. Right rib tenderness. Ultram given. Fine crackles right base. POX 92% on room air. Call fischer in reach
[2024-01-04] MEDS: DILAUDID 0.25 MG IV ×3 (10:39→20:58)
--- NOTE | 2024-01-04 10:59 | PTCARENOTE ---
Patient with 8 out 10 anterior right rib pain. Movement exacerbates her pain. Assisted back to bed. Dilaudid IV given with some relief. POX 94% on room air. Few fine crackles right base, chest tube intact to water seal, call fischer in reach
--- NOTE | 2024-01-04 12:44 | CM ---
Reviewed chart. Met with and Mrs. Portillo to review discharge plans. She states she is feeling well. We reviewed [facility] with her. She is agreeable to [facility] Services. She is agreeable to [facility]. TT to [facility] to see if they can accept the referral. Sent the referral. Prior to admission she resides with her spouse in a two story home. She has a first floor set-up. Prior to admission she was independent with ambulation and adls. She does not have
any DME in the home. She has a prescription plan and uses [facility]. Medical work-up in progress. The discharge plan is to return home with her spouse and [facility] when medically stable.
--- NOTE | 2024-01-04 15:49 | PTCARENOTE ---
Patient comfortable in bed. Chest tube intact with no new output since 7am. Denies shortness of breath, denies pain at rest, call fischer in reach
--- NOTE | 2024-01-04 17:30 | SUR.OPER ---
Patient walked to the bathroom, assisted to chair. Right rib pain with movement. Attempted to control pain with PO Ultram with little relief. Rating pain 8 out 10, IV Dilaudid given. Chest tube intact. VSS
[2024-01-04] MEDS: FLEXERIL 5 MG PO (19:33)
[2024-01-04] MEDS: PEPCID 40 MG PO (22:16)
--- NOTE | 2024-01-05 00:38 | PTCARENOTE ---
Pt received start of shift, HR SR/ST. Beginning of shift Chest tube to water seal. No crepitus. No tidaling or air leak observed. Clamped 0005. Pt and significant other updated on plan of care.
Pt c/o reproducible pain at insertion site radiating to R ribs when moving 8/10. PRN flexeril and dilaudid administered - see MAR. Effective.
[2024-01-05 04:49] VITALS: BP 112/56
[2024-01-05] MEDS: TYLENOL 1000 MG PO (04:52)
[2024-01-05] MEDS: ULTRAM 50 MG PO (04:53)
[2024-01-05 05:46] LABS: Hematocrit 39.4 % (37.0-47.0); Hemoglobin 13.1 g/dL (12.0-16.0); Mean Corp Hgb Conc. 33.2 g/dL (33.0-37.0); Mean Corpuscular Hgb 29.6 pg (27.0-31.0); Mean Corpuscular Volume 89.1 fL (81.0-99.0); Mean Platelet Volume 9.2 fL (7.4-10.4); Platelet Count 255 10^3/uL (130-400); Red Blood Cell Count 4.42 10^6/uL (4.20-5.40); Red Cell Dist. Width 12.9 % (11.5-14.5); White Blood Cell Count 8.7 10^3/uL (4.8-10.8)
[2024-01-05] MEDS: DILAUDID 0.25 MG IV (05:58)
[2024-01-05 06:26] LABS: Blood Urea Nitrogen 31 mg/dl (7-17); Calcium 9.4 mg/dl (8.4-10.2); Carbon Dioxide 22 mmol/L (22-30); Chloride 101 mmol/L (98-107); Estimated Creatinine Clearance 67 ml/min; Glucose 103 mg/dl (70-99); Potassium 3.9 mmol/L (3.5-5.1); Sodium 140 mmol/L (135-145); eGFR > 60.00
[2024-01-05] MEDS: SPIRIVA RESPIMAT 2.5 MCG 2 PUFF INH (07:20)
[2024-01-05] MEDS: SYMBICORT 160/4.5 MCG INHALER 2 PUFF INH (07:20)
[2024-01-05] MEDS: LOPRESSOR 12.5 MG PO (07:31)
[2024-01-05] MEDS: PROTONIX 40 MG PO (07:32)
[2024-01-05] MEDS: VITAMIN B-12 1000 MCG PO (07:32)
[2024-01-05] MEDS: VITAMIN C 1000 MG PO (07:32)
[2024-01-05] MEDS: WELLBUTRIN REGULAR RELEASE 75 MG PO (07:32)
[2024-01-05] MEDS: VITAMIN D3 (cholecalciferol) 25 MCG PO (07:32)
[2024-01-05] MEDS: ACTIGALL 300 MG PO (07:32)
[2024-01-05] MEDS: FLEXERIL 5 MG PO (07:32)
[2024-01-05] MEDS: SENOKOT 8.6 MG PO (07:32)
[2024-01-05] MEDS: NEURONTIN 100 MG PO (07:32)
[2024-01-05 07:35] VITALS: BP 113/67
[2024-01-05] MEDS: NON-FORMULARY ITEM 1.2 GRAMS PO (07:50)
[2024-01-05 07:56] VITALS: BP 111/65
--- NOTE | 2024-01-05 09:21 | W.DCSUMMARY ---
Discharge Summary
Discharge Data
Date of Admission: 01/02/24
Date of Discharge: 01/05/24
Total time spent discharging patient (in min): 45
-
Pending Results: No
Hospital Course
Primary care physician:
Dr. Risa Rodgers
Outpatient brim stiffener:
Dr. Tabor
Inpatient consultants:
Interventional radiology
Procedures:
1. Multiple chest tube replacements
Primary Diagnosis:
1. Right pneumothorax
Secondary Diagnoses:
1. Recent right upper lobe wedge resection with Dr. Kerr
2.History of basal cell cancer
HPI: 64-year-old female who was recently here on 12/10 for right upper lobe resection and discharge on 12/18 presented on 01/01 after dislodging home chest tube.
Hospital course: Patient initially presented to [facility] emergency room on 01/01 after getting out of bed and postoperative chest tube fell out. Chest x-ray was done which showed a right pneumothorax so a pigtail was placed in the ER and chest
tube was placed to suction. She was sent to the CVICU for the remainder of her care. Unfortunately patient's pigtail was dislodged later in the day and repeat chest x-ray showed a significant pneumothorax so patient went to interventional
radiology for chest tube replacement. On 01/02 patient was observed to have a intermittent airleak with inspiration and cough. Therefore, she was given a blood patch. Chest x-ray postprocedure showed mild improvement. On 01/03 chest x-ray showed
some further improvement and she was trialed on waterseal. Repeat chest x-ray with stable. On 01/04 patient's chest tube was clamped at midnight and repeat chest x-ray in the morning showed a stable pneumothorax. Patient's chest tube was removed
per Dr. Kerr and repeat chest x-ray 4 hours later was stable. She was then deemed okay for discharge home.
Home medication changes:
None
Discharge Plan
-
Patient Disposition: Home (Routine Discharge)
Discharge Diagnosis/Procedures: Right CT placement
Right pneumothorax
Condition: Good
Diet: 2 Gram Sodium
Activity: No strenuous activity
Additional Activity: No heavy lifting for 2 weeks
Driving Restrictions: No driving for 2 weeks
Bathing Restrictions: OK to shower but keep dressing on for 48hrs
Others Tests: Repeat CXR in one week
Wound Care: Keep current dressing on for 48hrs and then ok to leave open to air
Specialty Instructions: Weigh Daily- Call MD for wt gain/loss 3 lbs overnight/5 lbs in 1 week
Referrals:
Marcy Chung MD [Family Provider] -
Estrella Leung CRNP [Specified Professional Personl] - 01/12/24 11:00 am
Additional Discharge Medication Instructions: You will need a Chest x-ray in one week. After your chest Xray please go to Cardiac surgery office.
Prescriptions:
New
pantoprazole 40 mg Tablet,Delayed Release (Dr/Ec)
40 mg PO DAILY Qty: 30 0RF
Continued
Spiriva Respimat 1 PUFF mist
2 puff inhalation DAILY
fluticasone furoate-vilanterol [Breo Ellipta] 1 EACH blister with device
1 ea inhalation DAILY
acetaminophen 325 MG tablet
650 mg PO Q4HPRN PRN (Reason: headache)
cholecalciferol (vitamin D3) [Vitamin D3] 25 mcg (1,000 unit) Tablet
25 mcg PO DAILY
Rx Instructions:
has not restarted vitamins since prior surgery
famotidine 40 mg Tablet
40 mg PO HS
mesalamine 1.2 gram Tablet,Delayed Release (Dr/Ec)
4.8 g PO DAILY
ursodiol 300 mg Capsule
300 mg PO BID
Vitamin C 1,000 mg Tablet Extended Release
1,000 mg PO DAILY
Rx Instructions:
hasnt restarted vitamins post surgery
cyanocobalamin (vitamin B-12) [Vitamin B-12] 1,000 mcg Tablet
1,000 mcg PO DAILY
alprazolam 0.25 mg Tablet
0.25 mg PO DAILY PRN (Reason: anxiety)
Patient Comments:
only taken once and 'didn't like it'
bupropion HCl tablet
75 mg PO BID
Rx Instructions:
take 1 tablet twice a day for 2 weeks, then 2 tablets twice a day after as tolerated.
cyclobenzaprine 10 mg Tablet
5 mg PO Q8HPRN PRN (Reason: muscle spasm) Qty: 30 0RF
metoprolol tartrate 25 mg Tablet
12.5 mg PO BID Qty: 30 1RF
gabapentin 100 mg Capsule
100 mg PO TID Qty: 30 0RF
Rx Instructions:
After 1 week, begin weaning yourself off this medication. Take 1 tab BID x 1 day then take 1 tab daily x 1 day
sennosides [Senna Laxative] 8.6 mg Tablet
8.6 mg PO BID Qty: 60 0RF
Rx Instructions:
Take daily while taking narcotic medications. Hold for loose stools/diarrhea
oxycodone 5 mg tablet
5 mg PO Q6H PRN (Reason: moderate-severe pain) Qty: 28 0RF
Rx Instructions:
Ongoing pain control. Attending Dr. Lamont Kerr MD.
Discharge Orders:
Discharge Patient (As Directed); Ordered 01/05/24
Ordered By: Cris Watson
Care Plan Goals
Care Plan Goals:
Problem: Readiness for enhanced knowledge related to diagnosis and treatment plan
Goal: Understand your diagnosis and treatment plan needs, including medications if applicable.
Instructions: Know your diagnosis, underlying causes and treatment plan options, including medications if applicable. Consult with your health care team to learn about your diagnosis and treatment plan, including medications if applicable.
Discharge Date and Time
Discharge Date/Time: 01/05/24 13:15
Print Language: ICELANDIC
--- NOTE | 2024-01-05 10:10 | PTCARENOTE ---
Chest tube removed earlier and no longer having pain. Dressing dry, walking in the room.
[2024-01-05 11:29] VITALS: BP 101/66
--- NOTE | 2024-01-05 13:18 | PTCARENOTE ---
Patient discharged to home. driving home. Discharge teaching completed. Patient verbalized understanding.
--- NOTE | 2024-01-05 13:54 | CM ---
Reviewed chart. Met with and Mrs. Portillo to review discharge plans. She states she is feeling better an rosario able to go home soon. We reviewed [facility] Services with Luisito LANCE and she is agreeable to [facility] Services. Prior to admission she
resides with her spouse in a two story home She has a first floor set=up. Prior to admission she was independent with ambulation and adls. She does not have any DME in the home. She has been ambulating in the room. Her spouse will be home to assist
in her care if needed. Medical work-up in progress. The discharge plan is to return home with her spouse and [facility] when medically stable
== END 2024-01-05 13:15 | disposition home health service (06) | DRG 200 ==
LOC: IVU 02:01
PROVIDERS: Nurse Practitioner Primary Care; Radiology Diagnostic Radiology; Radiology Vascular & Interventional Radiology; ADMITTING PHYSICIAN Thoracic Surgery (Cardiothoracic Vascular Surgery); EMERGENCY PHYSICIAN Student in an Organized Health Care Education/Training Program; FAMILY PHYSICIAN Internal Medicine
PROC: 0W9930Z Drainage of Right Pleural Cavity with Drainage Device, Percutaneous Approach (ICD-10-PCS; 2024-01-02)
PROC: 0WP9X0Z Removal of Drainage Device from Right Pleural Cavity, External Approach (ICD-10-PCS; 2024-01-05)
DX: J93.9 Pneumothorax, unspecified (principal); J98.11 Atelectasis; K50.10 Crohn's disease of large intestine without complications; K21.9 Gastro-esophageal reflux disease without esophagitis; J44.9 Chronic obstructive pulmonary disease, unspecified; T81.82XA Emphysema (subcutaneous) resulting from a procedure, initial encounter; Y83.8 Other surgical procedures as the cause of abnormal reaction of the patient, or of later complication, without mention of misadventure at the time of the procedure; Y92.9 Unspecified place or not applicable; Z85.828 Personal history of other malignant neoplasm of skin; Z87.891 Personal history of nicotine dependence; Z90.2 Acquired absence of lung [part of]
CPT/HCPCS: 31500; 32557; 71045; 71046; 80048; 85027; 94640; 99285; 99406; C1729; C1769

== ENCOUNTER → 2024-01-12 10:42 | Outpatient (REF) | payer OTHER, SELFPAY | LOC: RAD 10:42 | PROVIDERS: ATTENDING PHYSICIAN Thoracic Surgery (Cardiothoracic Vascular Surgery); FAMILY PHYSICIAN Internal Medicine | DX: J95.811 Postprocedural pneumothorax (principal) | CPT/HCPCS: 71046 ==

== ENCOUNTER → 2024-02-01 11:35 | Outpatient (REF) | payer OTHER, SELFPAY | LOC: HWRAD 11:35 | PROVIDERS: ATTENDING PHYSICIAN Internal Medicine Critical Care Medicine; FAMILY PHYSICIAN Internal Medicine | DX: R20.0 Anesthesia of skin (principal); R07.9 Chest pain, unspecified | CPT/HCPCS: 71046 ==

== ENCOUNTER → 2024-05-01 07:41 | Outpatient (REF) | payer BC, SELFPAY | LOC: HWRAD 07:41 | PROVIDERS: ATTENDING PHYSICIAN Internal Medicine Critical Care Medicine; FAMILY PHYSICIAN Internal Medicine | DX: C34.91 Malignant neoplasm of unspecified part of right bronchus or lung (principal) | CPT/HCPCS: 71250 ==

== ENCOUNTER → 2024-05-30 14:35 | Outpatient (REF) | payer BC, SELFPAY | LOC: HWWDC 14:35 | PROVIDERS: ATTENDING PHYSICIAN Internal Medicine | DX: Z12.39 Encounter for other screening for malignant neoplasm of breast (principal); Z78.0 Asymptomatic menopausal state | CPT/HCPCS: 77063; 77067; 77080 ==

== ENCOUNTER → 2024-07-12 07:49 | Outpatient (REF) | payer BC, SELFPAY | LOC: HWRAD 07:49 | PROVIDERS: ATTENDING PHYSICIAN Internal Medicine; FAMILY PHYSICIAN Internal Medicine | DX: R79.89 Other specified abnormal findings of blood chemistry (principal) | CPT/HCPCS: 76700 ==

== ENCOUNTER → 2024-07-29 14:57 | Outpatient (REF) | payer BC, SELFPAY | LOC: HWRAD 14:57 | PROVIDERS: ATTENDING PHYSICIAN Nurse Practitioner Family; FAMILY PHYSICIAN Internal Medicine | DX: R91.1 Solitary pulmonary nodule (principal) | CPT/HCPCS: 71250 ==

== ENCOUNTER 2024-08-07 06:19 | Day surgery (SDC) | payer BC, SELFPAY ==
[2024-08-07 11:51] VITALS: BP 139/78; BMI 35.2
[2024-08-07 13:49] VITALS: BP 123/69
[2024-08-07 14:00] VITALS: BP 123/65
[2024-08-07 14:15] VITALS: BP 129/62
== END 2024-08-07 14:53 | disposition home or self-care (01) ==
LOC: GI 06:19
PROVIDERS: ATTENDING PHYSICIAN Internal Medicine
DX: Z12.11 Encounter for screening for malignant neoplasm of colon (principal); R10.12 Left upper quadrant pain; R12 Heartburn; K44.9 Diaphragmatic hernia without obstruction or gangrene; Q39.9 Congenital malformation of esophagus, unspecified; D17.5 Benign lipomatous neoplasm of intra-abdominal organs; K29.70 Gastritis, unspecified, without bleeding; K57.30 Diverticulosis of large intestine without perforation or abscess without bleeding; D12.2 Benign neoplasm of ascending colon; K62.89 Other specified diseases of anus and rectum; K63.89 Other specified diseases of intestine; Z86.0101 Personal history of adenomatous and serrated colon polyps
CPT/HCPCS: 45380; 43239; 88305; 88342

== ENCOUNTER → 2024-10-10 08:41 | Outpatient (REF) | payer BC, SELFPAY | LOC: RAD 08:41 | PROVIDERS: ATTENDING PHYSICIAN Internal Medicine; FAMILY PHYSICIAN Internal Medicine | DX: R15.9 Full incontinence of feces (principal); M62.89 Other specified disorders of muscle | CPT/HCPCS: 74270 ==

== ENCOUNTER → 2024-12-02 07:46 | Outpatient (REF) | payer BC, SELFPAY | LOC: MRI 3T 07:46 | PROVIDERS: ATTENDING PHYSICIAN Internal Medicine; FAMILY PHYSICIAN Internal Medicine | DX: K50.10 Crohn's disease of large intestine without complications (principal); R15.9 Full incontinence of feces | CPT/HCPCS: 72197; 74183; A9575 ==

== ENCOUNTER → 2025-02-12 14:29 | Outpatient (REF) | payer BC, SELFPAY | LOC: HWRAD 14:29 | PROVIDERS: ATTENDING PHYSICIAN Internal Medicine Critical Care Medicine; FAMILY PHYSICIAN Internal Medicine | DX: C34.91 Malignant neoplasm of unspecified part of right bronchus or lung (principal) | CPT/HCPCS: 71250 ==

== ENCOUNTER → 2025-03-10 11:27 | Outpatient (REF) | payer BC, SELFPAY | LOC: PAVMRI 11:27 | PROVIDERS: ATTENDING PHYSICIAN Internal Medicine; FAMILY PHYSICIAN Internal Medicine | DX: K76.9 Liver disease, unspecified (principal); K86.89 Other specified diseases of pancreas | CPT/HCPCS: 74183; A9575 ==